=== PATIENT | male | born 1950 | race Two or more races ===

== ENCOUNTER 2019-06-08 12:22 | Inpatient (IN) | payer OTHER ==
[2019-06-08] MEDS ORDERED: ACETAMINOPHEN 1000 MG/100 ML VIAL (NON FORMULARY) IVPB ONE (13:04)
[2019-06-08] MEDS ORDERED: SODIUM CHLORIDE 1,000 ML IV STA ×2 (13:04→18:11)
--- NOTE | 2019-06-08 13:06 | PDOC ---
History of Present Illness - General History Source: Patient, Family - History of Present Illness Timing/Duration: other (this afternoon) <Jorge Wyman - Last Filed: 06/08/19 18:47> <Carleen Shaikh - Last Filed: 06/10/19 09:37> - General Chief Complaint: Pain Stated Complaint: ABD. PAIN Time Seen by Provider: 06/08/19 12:50 Past History - Past Medical History Anemia: Yes COPD: No Diabetes: Yes HTN: Yes Hypercholesterolemia: Yes - Surgical History Abdominal Surgery: Yes (ULCERS) - Psycho Social/Smoking Cessation Hx Smoking History: Never smoked <Tanna WymanYamilka - Last Filed: 06/08/19 18:47> <Carleen Shaikh - Last Filed: 06/10/19 09:37> - Past Medical History Allergies/Adverse Reactions: Allergies Allergy/AdvReac Type Severity Reaction Status Date / Time No Known Allergies Allergy Verified 06/08/19 12:28 Review of Systems - Review of Systems Constitutional: No: Chills, Fever ABD/GI: Yes: Diarrhea, Abdominal cramping. No: Nausea, Vomiting : No: Dysuria <Tanna WymanColtPinky - Last Filed: 06/08/19 18:47> *Physical Exam - Vital Signs Last Vital Signs Temp Pulse Resp BP Pulse Ox 97.3 F L 80 18 114/39 L 100 06/08/19 12:23 06/08/19 12:23 06/08/19 12:23 06/08/19 12:23 06/08/19 12:23 - Physical Exam Comments: 06/08/19 13:12 appears mildly lethargic General Appearance: Yes: Appropriately Dressed HEENT: positive: Normal Voice Neck: positive: Supple Respiratory/Chest: positive: Lungs Clear, Normal Breath Sounds. negative: Respiratory Distress Cardiovascular: positive: Regular Rate, S1, S2 Gastrointestinal/Abdominal: positive: Normal Bowel Sounds, Tender (diffusely), Soft. negative: Distended, Guarding, Rebound Musculoskeletal: negative: CVA Tenderness Integumentary: positive: Dry, Warm Neurologic: positive: Fully Oriented, Alert, Normal Mood/Affect <Tanna WymanYamilka - Last Filed: 06/08/19 18:47> - Vital Signs Last Vital Signs Temp Pulse Resp BP Pulse Ox 98.1 F 87 18 148/71 100 06/09/19 22:00 06/10/19 08:58 06/10/19 08:58 06/10/19 08:58 06/09/19 21:00 <HawaCarleen Manuel - Last Filed: 06/10/19 09:37> ED Treatment Course - LABORATORY CBC & Chemistry Diagram: 06/08/19 13:45 06/08/19 13:45 <Jorge Wyman - Last Filed: 06/08/19 18:47> - LABORATORY CBC & Chemistry Diagram: 06/09/19 08:40 06/09/19 08:40 - ADDITIONAL ORDERS Additional order review: 06/08/19 13:45 RBC 2.79 L MCV 89.1 MCHC 32.1 RDW 14.9 MPV 9.0 Neutrophils % 60.4 Lymphocytes % 22.0 Monocytes % 16.6 H Eosinophils % 0.6 Basophils % 0.4 - Medications Given in the ED: ED Medications Discontinued Medications Generic Name Dose Route Start Last Admin Trade Name Brittany PRN Reason Stop Dose Admin Acetaminophen 1,000 mg 06/08/19 13:04 06/08/19 15:05 Ofirmev Injection - IVPB 06/08/19 13:05 1,000 mg ONCE ONE Administration Sodium Chloride 1,000 mls @ 1,000 mls/hr 06/08/19 13:04 06/08/19 15:04 Normal Saline - IV 06/08/19 14:03 1,000 mls/hr ASDIR STA Administration Sodium Chloride 1,000 mls @ 1,000 mls/hr 06/08/19 18:11 06/08/19 18:46 Normal Saline - IV 06/08/19 19:10 1,000 mls/hr ASDIR STA Administration Lactated Ringer's 1,000 ml in 1,000 mls @ 83 mls/hr 06/08/19 20:45 06/08/19 21:50 Lactated Ringers Solution IV 83 mls/hr ASDIR TOYA Administration Ceftriaxone Sodium 50 mls @ 100 mls/hr 06/08/19 20:49 06/08/19 23:38 Ceftriaxone 1 Gm-D5w Bag IVPB 06/08/19 21:18 Not Given ONCE ONE Ceftriaxone Sodium 1 gm/ 50 mls @ 100 mls/hr 06/08/19 23:30 06/08/19 23:39 Dextrose IVPB 06/08/19 23:59 100 mls/hr ONCE ONE Administration Magnesium Sulfate 2 gm 06/09/19 13:41 06/09/19 16:25 Magnesium Sulfate IVPB 06/09/19 13:42 2 gm ONCE ONE Administration <Carleen Shaikh - Last Filed: 06/10/19 09:37> Medical Decision Making - Medical Decision Making 06/08/19 12:59 68 yo M, h/o HTN, DM, s/p surgery for gastric ulcer remotely per daughter, recently completed antibiotics for L foot cellulitis, currently undergoing hyperbaric oxygen treatment for wound, brought in by daughter for dizziness that patient reported today while at pharmacy. Reports feeling lightheaded and weak. Patient states for the past 20 days or more has had diffuse abdominal pain with numerous episodes of non-bloody watery stool. Was seen by his doctor and given medication for diarrhea which does not help her family. Denies any fever or chills. States symptoms started prior to antibiotic use. No recent travel see exam R/o colitis Stable but hawa lethargic w/ diffuse ttp -pain control -IVF -labs -ekg/trop given dizziness though m/l 2/2 dehydration given hx, less likely cardiac -CT a/p -dispo pending 06/08/19 15:08 Labs remarkable for hemoglobin of 8, no old to compare. Patient status post surgery for GI ulcer per daughter and is known to have anemia with multiple transfusions in the past. Does not remember patient's last hemoglobin. Guaiac with gross trace bright red blood. Type and screen and coags pending. Potassium 5.8 with normal creatinine. EKG with possible early re-pole, otherwise unremarkable. Troponin negative. CT abdomen pelvis and stool studies pending. Anticipate admission for dehydration/weakness given persistent diarrhea. Anemia may also play role 06/08/19 18:02 CT with multiple findings, mostly most appears non-acute. Seen is increased intracolonic fluid suggestive of diarrheal illness but no colonic wall edema or fluid. There is concentric subQ edema along the abdomen and pelvis. There is also dilation of main pancreatic duct within the head, MRI/MRCP suggested. Gallstones seen with no signs of acute cholecystitis. Also seen partially is possible mod pericardial effusion, echo suggested. Of note, pt has no SOB or CP at this time. Will defer further eval to inpt team/cards. Patient feels better at this time but still feels weak. IVF in progress. At this time has still not been able to give us a stool sample. Will admit at this time <Jorge Wyman - Last Filed: 06/08/19 18:47> - Medical Decision Making The patient was seen and evaluated in conjunction with midlevel provider under my direct supervision, ancillary studies were reviewed. I agree with the plan as outlined with MIKI Wyman. HPI, workup/dispo as outlined. VS reviewed, wnl. anticipate labs/CT imaging, c diff eval from stool sampling, infectious workup, GI eval for persistent diarrhea, admission 06/10/19 09:36 06/10/19 09:37 <Carleen Shaikh - Last Filed: 06/10/19 09:37> Discharge - Discharge Information Problems reviewed: Yes - Admission Yes <Jorge Wyman - Last Filed: 06/08/19 18:47> <Carleen Shaikh - Last Filed: 06/10/19 09:37> - Discharge Information Clinical Impression/Diagnosis: Weakness, Dehydration Diarrhea Qualifiers: Diarrhea type: unspecified type Qualified Code(s): R19.7 - Diarrhea, unspecified Anemia Qualifiers: Anemia type: unspecified type Qualified Code(s): D64.9 - Anemia, unspecified Abdominal pain Qualifiers: Abdominal location: unspecified location Qualified Code(s): R10.9 - Unspecified abdominal pain Condition: Fair
[2019-06-08 14:34] LABS: ALBUMIN 3.2 g/dl (3.4-5.0); ALK PHOS 80 U/L (45-117); ANION GAP 8 MMOL/L (8-16); BILIRUBIN,TOTAL 0.2 mg/dL (0.2-1); BLOOD UREA NITROGEN 20.2 mg/dL (7-18); CALCIUM 8.4 mg/dL (8.5-10.1); CHLORIDE 110 mmol/L (98-107); CO2 19 mmol/L (21-32); CREATININE 1.1 mg/dL (0.55-1.3); GLUCOSE,RANDOM 104 mg/dL (74-106); POTASSIUM 5.8 mmol/L (3.5-5.1); SGOT/AST 13 U/L (15-37); SGPT/ALT 21 U/L (13-61); SODIUM 137 mmol/L (136-145); TOT PROT 6.3 g/dl (6.4-8.2)
--- NOTE | 2019-06-08 14:38 | EKG ---
Test Reason : Blood Pressure : / mmHG Vent. Rate : 073 BPM Atrial Rate : 073 BPM P-R Int : 120 ms QRS Dur : 090 ms QT Int : 370 ms P-R-T Axes : 073 070 121 degrees QTc Int : 407 ms NORMAL SINUS RHYTHM LEFT VENTRICULAR HYPERTROPHY WITH REPOLARIZATION ABNORMALITY ABNORMAL ECG NO PREVIOUS ECGS AVAILABLE Confirmed by Ken Ambriz ([id number]) on 06/08/2019 2:38:22 PM Referred By: Confirmed By:Ken Ambriz
[2019-06-08 14:43] LABS: BASO % 0.4 % (0-2.0); EOS % 0.6 % (0-4.5); HEMATOCRIT 24.9 % (35.4-49); MCH 28.6 pg (25.7-33.7); MCHC 32.1 g/dl (32.0-35.9); MEAN CELL VOLUME 89.1 fl (80-96); MONO % 16.6 % (3.8-10.2); NEUT % 60.4 % (42.8-82.8); PLATELET COUNT 124 K/MM3 (134-434); RBC 2.79 M/mm3 (4.00-5.60); RDW 14.9 % (11.9-15.9); WHITE BLOOD COUNT 3.9 K/mm3 (4.0-10.0)
[2019-06-08] MEDS ORDERED: ACETAMINOPHEN INJECTION 100 ML IVPB ONE (14:50)
[2019-06-08 16:08] LABS: INR 1.12 (0.83-1.09); PROTHROMBIN TIME (PATIENT) 13.2 SEC (9.7-13.0)
--- NOTE | 2019-06-08 20:02 | PN ---
Teaching Attending Note Name of Resident: Jovanny Bishop ATTENDING PHYSICIAN STATEMENT I saw and evaluated the patient. I reviewed the resident's note and discussed the case with the resident. I agree with the resident's findings and plan as documented. SUBJECTIVE: 68-year-old male with uncontrolled diabetes mellitus, hypertension, peripheral vascular disease, Was undergoing antibiotic treatment for left big toe wound Since May 07Hyperbaric oxygen [facility] at [facility]. Patient denied that bone was infected. About 1 week later he developed diarrhea with up to 10 bowel movements per day. Stools were nonbloody. Denied any fevers. Patient said he stopped taking his antibiotics several days ago due to his persistent diarrhea. OBJECTIVE: Last Vital Signs Temp Pulse Resp BP Pulse Ox 98.3 F 67 15 126/57 L 100 06/08/19 19:47 06/08/19 19:47 06/08/19 19:48 06/08/19 19:47 06/08/19 19:48 GENERAL: Thin, not in acute distress, awake and alert HEENT: Normocephalic, atraumatic. PERRLA, EOMI. No conjunctival pallor. Sclera are non- icteric. Moist mucous membranes. Oropharynx is clear. NECK: Supple. Full ROM. No JVD. Carotid pulses 2+ and symmetric, without bruits. No thyromegaly. No lymphadenopathy. CARDIOVASCULAR: Regular rate and rhythm. No murmurs, rubs, or gallops. Distal pulses are 2+ and symmetric. PULMONARY: No evidence of respiratory distress. Lungs clear to auscultation bilaterally. No wheezing, rales or rhonchi. ABDOMINAL: Soft. Non-tender. Non-distended. No rebound or guarding. No organomegaly. Normoactive bowel sounds. MUSCULOSKELETAL Normal range of motion at all joints. No bony deformities or tenderness. No CVA tenderness. EXTREMITIES: No cyanosis. No clubbing. No edema. No calf tenderness. SKIN: Warm and dry. Normal capillary refill. No rashes. No jaundice. PSYCHIATRIC: Cooperative. Good eye contact. Appropriate mood and affect. As per ER rectal exam reported to have blood specks in stool Abnormal Lab Results 06/08/19 06/08/19 06/08/19 13:45 13:45 15:30 WBC 3.9 L RBC 2.79 L Hgb 8.0 L Hct 24.9 L Plt Count 124 L Monocytes % 16.6 H PT with INR 13.20 H INR 1.12 H Potassium 5.8 H Chloride 110 H Carbon Dioxide 19 L BUN 20.2 H Calcium 8.4 L AST 13 L Total Protein 6.3 L Albumin 3.[address] of abdomen pelvis showed increased intracolonic fluid suggestive of diarrhea. Increased mesenteric density seen suggestive of edema, surgical clips are adjacent to gastroesophageal junction. Cholelithiasis. Mild bilateral adrenal gland thickening. Main pancreatic duct within the head is dilated with a 0.9 cm diameter. ASSESSMENT AND PLAN: 68-year-old man with severe diarrhea with up to 7 BMs per day while on antibiotics concerning for possible C. difficile colitis. Will rule out C. difficile colitis and evaluate for other causes of infectious or inflammatory colitis.Due to severity of diarrhea would also treat empirically with antimicrobials for possible Bacterial colitis. Admit to MedSurg IV fluid hydration with LR Send stool for C. difficile toxin PCR Stool WBC, culture, ova and parasites, osmolarity Send stool for FOBT Empiric antibiotic therapy with Rocephin and metronidazole Imodium as needed for severe diarrhea #Pancytopenia Continue to monitor cell counts HIV testing #Left great toe InfectionUnclear as were used and the plan of treatment was. On exam patient's toe appears healthy and no evidence of infection. We will obtain history for treatment in a.m. DVT prophylaxis with heparin subcutaneously
--- NOTE | 2019-06-08 20:31 | HP ---
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 Pt endorses that he has been experiencing profuse diarrhea for 20 days duration. Pt has been experiencing as many as 8 episodes per day. No blood is seen in stool. Pt does state he has been on antibiotics (cannot recall name) for a left large toe bone infection (most likely osteomyelitis). Pt follows up at our wound care where he receives Hyperbaric oxygen treatment. Pt states he was prescribed a 60 day course of oral antibiotics and he has been taking them so far for ~40-50 days. Endorses abdominal pain which is described as colicky in nature. Denies fever, chills, nausea/vomiting, chest pain, shortness of breath, numbness/tingling, or dysuria. PMH as above SocialHx- Denies tobacco/alcohol/illicit drug use SurgHx- 2 Stomach ulcer surgeries 1995 and 2016 respectively HH- Father Stroke, Mother DM NKDA ER course was notable for: (1) H/H 8.9 (2) (3) HOME MEDICATIONS: Home Medications Medication Instructions Recorded Unobtainable 06/08/19 REVIEW OF SYSTEMS CONSTITUTIONAL: Absent: fever, chills, diaphoresis, generalized weakness, malaise, loss of appetite, weight change HEENT: Absent: rhinorrhea, nasal congestion, throat pain, throat swelling, difficulty swallowing, mouth swelling, ear pain, eye pain, visual changes CARDIOVASCULAR: Absent: chest pain, syncope, palpitations, irregular heart rate, lightheadedness , peripheral edema RESPIRATORY: Absent: cough, shortness of breath, dyspnea with exertion, orthopnea, wheezing, stridor, hemoptysis GASTROINTESTINAL: PRESENT abdominal pain, diarrhea GENITOURINARY: Absent: dysuria, frequency, urgency, hesitancy, hematuria, flank pain, genital pain MUSCULOSKELETAL: Absent: myalgia, arthralgia, joint swelling, back pain, neck pain SKIN: Absent: rash, itching, pallor HEMATOLOGIC/IMMUNOLOGIC: Absent: easy bleeding, easy bruising, lymphadenopathy, frequent infections ENDOCRINE: Absent: unexplained weight gain, unexplained weight loss, heat intolerance, cold intolerance NEUROLOGIC: Absent: headache, focal weakness or paresthesias, dizziness, unsteady gait, seizure, mental status changes, bladder or bowel incontinence PSYCHIATRIC: Absent: anxiety, depression, suicidal or homicidal ideation, hallucinations. PHYSICAL EXAMINATION Vital Signs - 24 hr 06/08/19 06/08/19 06/08/19 12:23 13:40 19:47 Temperature 97.3 F L 98.3 F Pulse Rate 80 Pulse Rate [ 77 67 Right] Respiratory 18 16 15 Rate Blood Pressure 114/39 L Blood Pressure 111/55 L 126/57 L [Right Arm] O2 Sat by Pulse 100 100 100 Oximetry (%) 06/08/19 19:48 Temperature Pulse Rate Pulse Rate [ Right] Respiratory 15 Rate Blood Pressure Blood Pressure [Right Arm] O2 Sat by Pulse 100 Oximetry (%) GENERAL: NAD AAOx3 HEAD: Normal with no signs of trauma. EYES: ++Scleral icterus EARS, NOSE, THROAT: Dry mucous membranes NECK: Supple No JVD LUNGS: Clear to auscultation bilaterally HEART: RRR S1S2 ABDOMEN: Diffuse abdominal tenderness. Vertical Surgical Scar mid abdomen RECTAL-No masses, hemmorhoids, or blood around anus. Loose stool in rectal vault. MUSCULOSKELETAL: FROM LOWER EXTREMITIES: Healing wound left large toe. Nonoozing not malodorous NEUROLOGICAL: Cranial nerves II-XII intact. PSYCHIATRIC: Cooperative. Good eye contact. Appropriate mood and affect. Laboratory Results - last 24 hr 06/08/19 06/08/19 06/08/19 13:45 13:45 13:45 WBC 3.9 L RBC 2.79 L Hgb 8.0 L Hct 24.9 L MCV 89.1 MCH 28.6 MCHC 32.1 RDW 14.9 Plt Count 124 L MPV 9.0 Absolute Neuts (auto) 2.3 Neutrophils % 60.4 Lymphocytes % 22.0 Monocytes % 16.6 H Eosinophils % 0.6 Basophils % 0.4 Nucleated RBC % 0 PT with INR INR Sodium 137 Potassium 5.8 H Chloride 110 H Carbon Dioxide 19 L Anion Gap 8 BUN 20.2 H Creatinine 1.1 Est GFR (CKD-EPI)AfAm 80.65 Est GFR (CKD-EPI)NonAf 69.58 Random Glucose 104 Calcium 8.4 L Total Bilirubin 0.2 AST 13 L ALT 21 Alkaline Phosphatase 80 Creatine Kinase 60 Troponin I < 0.02 Total Protein 6.3 L Albumin 3.2 L Lipase 332 Anti-A Titer Blood Type Antibody Screen 06/08/19 06/08/19 15:30 15:30 WBC RBC Hgb Hct MCV MCH MCHC RDW Plt Count MPV Absolute Neuts (auto) Neutrophils % Lymphocytes % Monocytes % Eosinophils % Basophils % Nucleated RBC % PT with INR 13.20 H INR 1.12 H Sodium Potassium Chloride Carbon Dioxide Anion Gap BUN Creatinine Est GFR (CKD-EPI)AfAm Est GFR (CKD-EPI)NonAf Random Glucose Calcium Total Bilirubin AST ALT Alkaline Phosphatase Creatine Kinase Troponin I Total Protein Albumin Lipase Anti-A Titer Cancelled Blood Type Cancelled Antibody Screen Cancelled ASSESSMENT/PLAN: Pt is a 68 y/o Arabic speaking M with a significant past medical history of NIDDM, HTN, and PVD who presented to [facility] due to diarrhea. #Diarrhea 2/2 Antibiotic Use -Pt endorses a prolonged course of antibiotic use -Will order C-Diff -Stool for Ova and Parasites -Stool C&S -I.D fluids for hydration -Stool occult -Ceftriaxone and Flagyl as PA observed blood during rectal exam as well as h/o 20 days diarrhea -Consider GI consult in am #Anemia 2/2 possible GI Source -H/H 8.0/24.9 -Repeat CBC in am -Transfuse for hemoglobin < 7.0. -Ferritin, TIBC, IRON, B12 #FEN -NS@83 cc/hr -Monitor Electrolytes -NPO #DVT ppx -SCDs in light of anemia #Dispo -Med Surg Day team to reconcile medications Visit type - Emergency Visit Emergency Visit: Yes ED Registration Date: 06/08/19 Care time: The patient presented to the Emergency Department on the above date and was hospitalized for further evaluation of their emergent condition. - New Patient This patient is new to me today: Yes Date on this admission: 06/08/19 - Critical Care Critical Care patient: No ATTENDING PHYSICIAN STATEMENT I saw and evaluated the patient. I reviewed the resident's note and discussed the case with the resident. I agree with the resident's findings and plan as documented. SUBJECTIVE: OBJECTIVE: ASSESSMENT AND PLAN:
[2019-06-08] MEDS ORDERED: LACTATED RINGERS SOLUTION 1,000 ML/1,000 ML INFUS.BAG IV SCH (20:45)
[2019-06-08] MEDS ORDERED: CEFTRIAXONE 1 G/50 ML PREMIX 50 ML IVPB ONE (20:49)
[2019-06-08] MEDS ORDERED: CEFTRIAXONE 1 GM in DEXTROSE 5%-WATER - 50 ML IVPB ONE (23:30)
[2019-06-08] MEDS: SODIUM CHLORIDE 1,000 ML IV SCH (23:33)
[2019-06-08] MEDS ORDERED: cefTRIAXone SODIUM 1 GM VIAL ONE (23:36)
[2019-06-08] MEDS ORDERED: DEXTROSE 5%-WATER - 50 ML IVPB ONE (23:37)
[2019-06-09 01:14] LABS: BLOOD UREA NITROGEN 18.7 mg/dL (7-18); CALCIUM 7.8 mg/dL (8.5-10.1); CREATININE 1.1 mg/dL (0.55-1.3); POTASSIUM 5.4 mmol/L (3.5-5.1)
[2019-06-09] MEDS: INSULIN SLIDING SCALE (NOVOLOG) 1 VIAL SQ SCH ×4 (06:48→22:18)
[2019-06-09 09:11] LABS: BASO % 0.1 % (0-2.0); EOS % 0.8 % (0-4.5); HEMATOCRIT 22.4 % (35.4-49); HEMOGLOBIN 7.3 GM/dL (11.7-16.9); LYMPH % 27.1 % (8-40); MCH 28.6 pg (25.7-33.7); MCHC 32.4 g/dl (32.0-35.9); MEAN CELL VOLUME 88.1 fl (80-96); MEAN PLT VOLUME 8.6 fl (7.5-11.1); MONO % 18.9 % (3.8-10.2); NEUT % 53.1 % (42.8-82.8); PLATELET COUNT 108 K/MM3 (134-434); RBC 2.54 M/mm3 (4.00-5.60); RDW 14.7 % (11.9-15.9); WHITE BLOOD COUNT 2.9 K/mm3 (4.0-10.0)
[2019-06-09 09:16] LABS: INR 1.07 (0.83-1.09); PROTHROMBIN TIME (PATIENT) 12.6 SEC (9.7-13.0)
[2019-06-09 09:19] LABS: ACTIVATED PTT 30.3 SECONDS (25.2-36.5)
[2019-06-09 09:36] LABS: ALBUMIN 2.9 g/dl (3.4-5.0); BILIRUBIN,TOTAL 0.2 mg/dL (0.2-1); BLOOD UREA NITROGEN 18.4 mg/dL (7-18); CALCIUM 8.1 mg/dL (8.5-10.1); CREATININE 0.8 mg/dL (0.55-1.3); MAGNESIUM 1.4 mg/dL (1.8-2.4); PHOSPHOROUS 2.6 mg/dL (2.5-4.9); POTASSIUM 4.7 mmol/L (3.5-5.1); TOT PROT 5.5 g/dl (6.4-8.2)
--- NOTE | 2019-06-09 10:36 | EKG ---
Test Reason : Blood Pressure : / mmHG Vent. Rate : 064 BPM Atrial Rate : 064 BPM P-R Int : 124 ms QRS Dur : 098 ms QT Int : 406 ms P-R-T Axes : 069 066 094 degrees QTc Int : 418 ms NORMAL SINUS RHYTHM T WAVE ABNORMALITY, CONSIDER LATERAL ISCHEMIA ABNORMAL ECG WHEN COMPARED WITH ECG OF 08-JUN-2019 13:12, NO SIGNIFICANT CHANGE WAS FOUND Confirmed by GRETA TOVAR, ALINA ([id number]) on 06/09/2019 10:36:11 AM Referred By: Confirmed By:ALINA HERNANDES MD
--- NOTE | 2019-06-09 13:25 | PN ---
Teaching Attending Note Name of Resident: Kendall Ellis ATTENDING PHYSICIAN STATEMENT I saw and evaluated the patient. I reviewed the resident's note and discussed the case with the resident. I agree with the resident's findings and plan as documented. SUBJECTIVE: No more diarrhea -last episode yesterday. Reports 1 month Hx of watery diarrhea. No abdominal pain/nausea/vomiting/fever/chills. OBJECTIVE: Afebrile, Hemodynamically Stable. Last Vital Signs Temp Pulse Resp BP Pulse Ox 98.1 F 66 18 157/65 100 06/09/19 08:57 06/09/19 08:57 06/09/19 08:57 06/09/19 08:57 06/09/19 09:00 HEENT - Atraumatic, Normocephalic Heart - S1, S2, RRR Lungs - clear to auscultation Abdomen - Soft, non-tender. Bowel Sounds normal. Extremities - no edema, no calf tenderness. L great toe ulcer, no purulence or surrounding erythema Laboratory Results - last 24 hr 06/08/19 06/08/19 06/08/19 13:45 13:45 13:45 WBC 3.9 L RBC 2.79 L Hgb 8.0 L Hct 24.9 L MCV 89.1 MCH 28.6 MCHC 32.1 RDW 14.9 Plt Count 124 L MPV 9.0 Absolute Neuts (auto) 2.3 Neutrophils % 60.4 Lymphocytes % 22.0 Monocytes % 16.6 H Eosinophils % 0.6 Basophils % 0.4 Nucleated RBC % 0 PT with INR INR PTT (Actin FS) Sodium 137 Potassium 5.8 H Chloride 110 H Carbon Dioxide 19 L Anion Gap 8 BUN 20.2 H Creatinine 1.1 Est GFR (CKD-EPI)AfAm 80.65 Est GFR (CKD-EPI)NonAf 69.58 POC Glucometer Random Glucose 104 Calcium 8.4 L Phosphorus Magnesium Iron TIBC Iron Saturation Unsaturated IBC Ferritin Total Bilirubin 0.2 AST 13 L ALT 21 Alkaline Phosphatase 80 Creatine Kinase 60 Troponin I < 0.02 Total Protein 6.3 L Albumin 3.2 L Lipase 332 Vitamin B12 Anti-A Titer Blood Type Antibody Screen 06/08/19 06/08/19 06/08/19 15:30 15:30 22:18 WBC RBC Hgb Hct MCV MCH MCHC RDW Plt Count MPV Absolute Neuts (auto) Neutrophils % Lymphocytes % Monocytes % Eosinophils % Basophils % Nucleated RBC % PT with INR 13.20 H INR 1.12 H PTT (Actin FS) Sodium Potassium Chloride Carbon Dioxide Anion Gap BUN Creatinine Est GFR (CKD-EPI)AfAm Est GFR (CKD-EPI)NonAf POC Glucometer 110 Random Glucose Calcium Phosphorus Magnesium Iron TIBC Iron Saturation Unsaturated IBC Ferritin Total Bilirubin AST ALT Alkaline Phosphatase Creatine Kinase Troponin I Total Protein Albumin Lipase Vitamin B12 Anti-A Titer Cancelled Blood Type Cancelled Antibody Screen Cancelled 06/09/19 06/09/19 06/09/19 00:15 06:47 08:40 WBC 2.9 L RBC 2.54 L Hgb 7.3 L Hct 22.4 L MCV 88.1 MCH 28.6 MCHC 32.4 RDW 14.7 Plt Count 108 L MPV 8.6 Absolute Neuts (auto) 1.5 Neutrophils % 53.1 Lymphocytes % 27.1 D Monocytes % 18.9 H Eosinophils % 0.8 Basophils % 0.1 Nucleated RBC % 0 PT with INR INR PTT (Actin FS) Sodium 140 Potassium 5.4 H Chloride 112 H Carbon Dioxide 21 Anion Gap 7 L BUN 18.7 H Creatinine 1.1 Est GFR (CKD-EPI)AfAm 80.65 Est GFR (CKD-EPI)NonAf 69.58 POC Glucometer 90 Random Glucose 118 H Calcium 7.8 L Phosphorus Magnesium Iron TIBC Iron Saturation Unsaturated IBC Ferritin Total Bilirubin AST ALT Alkaline Phosphatase Creatine Kinase Troponin I Total Protein Albumin Lipase Vitamin B12 Anti-A Titer Blood Type Antibody Screen 06/09/19 06/09/19 06/09/19 08:40 08:40 08:40 WBC RBC Hgb Hct MCV MCH MCHC RDW Plt Count MPV Absolute Neuts (auto) Neutrophils % Lymphocytes % Monocytes % Eosinophils % Basophils % Nucleated RBC % PT with INR 12.60 INR 1.07 PTT (Actin FS) 30.3 Sodium 138 Potassium 4.7 Chloride 111 H Carbon Dioxide 23 Anion Gap 4 L BUN 18.4 H Creatinine 0.8 Est GFR (CKD-EPI)AfAm 107.89 Est GFR (CKD-EPI)NonAf 93.09 POC Glucometer Random Glucose 88 Calcium 8.1 L Phosphorus 2.6 Magnesium 1.4 L Iron 21 L 21 L TIBC 239 L Iron Saturation 8 L Unsaturated IBC 218 Ferritin 58.4 Total Bilirubin 0.2 AST 10 L ALT 18 Alkaline Phosphatase 76 Creatine Kinase Troponin I Total Protein 5.5 L Albumin 2.9 L Lipase Vitamin B12 879 Anti-A Titer Blood Type Antibody Screen 06/09/19 11:25 WBC RBC Hgb Hct MCV MCH MCHC RDW Plt Count MPV Absolute Neuts (auto) Neutrophils % Lymphocytes % Monocytes % Eosinophils % Basophils % Nucleated RBC % PT with INR INR PTT (Actin FS) Sodium Potassium Chloride Carbon Dioxide Anion Gap BUN Creatinine Est GFR (CKD-EPI)AfAm Est GFR (CKD-EPI)NonAf POC Glucometer 92 Random Glucose Calcium Phosphorus Magnesium Iron TIBC Iron Saturation Unsaturated IBC Ferritin Total Bilirubin AST ALT Alkaline Phosphatase Creatine Kinase Troponin I Total Protein Albumin Lipase Vitamin B12 Anti-A Titer Blood Type Antibody Screen Current Medications Generic Name Dose Route Start Last Admin Trade Name Brittany PRN Reason Stop Dose Admin Metronidazole 500 mg in 100 mls @ 100 mls/hr 06/08/19 21:00 06/09/19 10:25 Flagyl 500mg Premixed Ivpb - IVPB 100 mls/hr Q8H-IV TOYA Administration Sodium Chloride 1,000 mls @ 83 mls/hr 06/08/19 22:30 06/08/19 23:33 Normal Saline - IV 83 mls/hr ASDIR TOYA Administration Insulin Aspart 1 vial 06/09/19 07:00 06/09/19 11:35 Novolog Vial Sliding Scale - SQ Not Given ACHS TOYA Protocol Home Medications Medication Instructions Recorded Unobtainable 06/08/19 ASSESSMENT AND PLAN: 68 year old male with history of DM 2, HTN, PVD, PUD s/p repair, on antibiotics for L great toe infection ?osteomyelitis, admitted with prolonged periods of watery diarrhea - denies hematochezia/abdominal pain/nausea/vomiting/fever/ chills. 1. Diarrhea, likely secondary to Antibiotic Use. Cdiff requested along with Stool Cx. Flagyl empirically. Afebrile, Hemodynamically Stable. Will initiate clear liquid diet and advance as tolerated. 2. Pancytopenia - etiology unclear. Will reach out to patient's PCP Dr. Da Silva to enquire re: any hematological diagnoses. No signs of acute infection. Possible dx of chronic osteomyleitis - will confirm with PCP. 3. Anemia, likely multifactorial, including Iron deficiency. Reported blood per rectum on PE in ED. FOBT requested. Iron Sat 8% - No evidence of acute blood loss. Will monitor. hold off iron replacement untill FOBT sample obtained. 4. Hyperkalemia - repleted. 5. Hypomagnesemia - repleted. 6. Moderate pericardial Effusion on CT - no clinical signs of tamponade. Echo requested. 7.Dilated Pancreatic Duct - recommended to have MRCP (ordered) 8. Bilateral Adrenal Gland thickening on CT - MRI requested. 9. L Renal cortical lesion - incidental CT finding - for out-patient Urology follow up. 10. L Great toe infected Ulcer ? Osteomyelitis - will need medical records from PCP. Abx currently held de to diarrhea. DVT Px - SCDs.
[2019-06-09] MEDS ORDERED: MAGNESIUM SULF 50% (8.12 MEQ/2 ML-1 GM VIAL) IVPB ONE (13:41)
--- NOTE | 2019-06-09 14:17 | ECHO ---
Name: KLEBER DEMPSEY Exam:Adult Echocardiogram Study Date: 06/09/2019 12:08 PM Age: 68 yrs Reason For Study: Pericardial Effusion Height: 62 in Weight: 109 lb BSA: 1.5 m2 MMode/2D Measurements & Calculations IVSd: 1.0 cm Ao root diam: 2.9 cm LVIDd: 4.3 cm LA dimension: 3.7 cm LVIDs: 2.8 cm LVPWd: 1.1 cm LVPWs: 1.4 cm EDV(Teich): 81.3 ml ESV(Teich): 28.4 ml LVOT diam: 1.6 cm TAPSE: 2.2 cm RV S Zachary: 19.4 cm/sec Doppler Measurements & Calculations MV E max zachary: 74.0 cm/sec Ao V2 max: 120.3 cm/sec MV A max zachary: 114.0 cm/sec Ao max P.2 mmHg MV E/A: 0.65 MV dec time: 0.21 sec TR max zachary: 238.1 cm/sec PA V2 max: 88.6 cm/sec TR max P.1 mmHg PA max P.1 mmHg PI end-d zachary: 100.8 cm/sec Med Peak E' Zachary: 4.9 cm/sec Med E/e': 15.2 Lat Peak E' Zachary: 5.9 cm/sec Lat E/e': 12.5 Procedure A two-dimensional transthoracic echocardiogram with color flow and Doppler was performed. Left Ventricle The left ventricular size, thickness and function are normal. The left ventricular ejection fraction is normal. E/A reversal consistent with but not diagnostic of poor LV compliance. The left ventricular w all motion is normal. Right Ventricle The right ventricle is normal in size and function. Atria Normal left and right atrial size and function. Mitral Valve There is mild mitral valve thickening. There is no mitral valve stenosis. There is mild mitral regurg itation. Tricuspid Valve There is mild tricuspid valve thickening. There is no tricuspid stenosis. There is moderate tricuspid regurgitation. Right ventricular systolic pressure is normal. Aortic Valve The aortic valve is trileaflet. There is mild aortic valve thickening. There is mild aortic sclerosis .;. No hemodynamically significant valvular aortic stenosis. No aortic regurgitation is present. Pulmonic Valve There is no pulmonic valvular stenosis. Mild to moderate pulmonic valvular regurgitation. Great Vessels The aortic root is normal size. Pericardium/Pleura Moderate pericardial effusion (1-2 cm). Interpretation Summary The left ventricular size, thickness and function are normal The left ventricular ejection fraction is normal. The left ventricular wall motion is normal. There is mild mitral regurgitation. There is moderate tricuspid regurgitation. Right ventricular systolic pressure is normal. There is mild aortic sclerosis.; There is mild aortic valve thickening. The aortic valve is trileaflet. E/A reversal consistent with but not diagnostic of poor LV compliance Moderate pericardial effusion (1-2 cm) MD Humberto Moraes 06/09/2019 02:16 PM
--- NOTE | 2019-06-09 14:58 | PN ---
Physical Exam: SUBJECTIVE: Patient seen and examined in the morning. No acute events overnight. No complaints of chest pain, shortness of breath, abdominal pain, no nausea, vomiting, diarrhea. Patient has not had bowel movement since coming up to the floors. 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 HEAD: Normal with no signs of trauma. EYES: PERRL, extraocular movements intact, sclera anicteric, conjunctiva clear. NECK: Trachea midline, full range of motion, supple. LUNGS: Breath sounds equal, clear to auscultation bilaterally, no wheezes, no crackles. HEART: Regular rate and rhythm, S1, S2 without murmur, rub or gallop. ABDOMEN: Soft, nontender, nondistended, normoactive bowel sounds, no guarding. Rectal exam negative. Normal sphincter tone. No stool in vault. EXTREMITIES: 2+ pulses, warm, well-perfused, no edema. Big toe on the left foot has ulceration that is healing but no pus or bleed oozing out. NEUROLOGICAL: Cranial nerves II through XII grossly intact. Normal speech. PSYCH: Normal mood, normal affect. SKIN: Warm, dry, normal turgor, no rashes or lesions noted Laboratory Results - last 24 hr 06/08/19 06/08/19 06/08/19 13:45 13:45 15:30 WBC 3.9 L RBC 2.79 L Hgb 8.0 L Hct 24.9 L MCV 89.1 MCH 28.6 MCHC 32.1 RDW 14.9 Plt Count 124 L MPV 9.0 Absolute Neuts (auto) 2.3 Neutrophils % 60.4 Lymphocytes % 22.0 Monocytes % 16.6 H Eosinophils % 0.6 Basophils % 0.4 Nucleated RBC % 0 PT with INR 13.20 H INR 1.12 H PTT (Actin FS) Sodium 137 Potassium 5.8 H Chloride 110 H Carbon Dioxide 19 L Anion Gap 8 BUN 20.2 H Creatinine 1.1 Est GFR (CKD-EPI)AfAm 80.65 Est GFR (CKD-EPI)NonAf 69.58 POC Glucometer Random Glucose 104 Calcium 8.4 L Phosphorus Magnesium Iron TIBC Iron Saturation Unsaturated IBC Ferritin Total Bilirubin 0.2 AST 13 L ALT 21 Alkaline Phosphatase 80 Creatine Kinase 60 Troponin I < 0.02 Total Protein 6.3 L Albumin 3.2 L Vitamin B12 Anti-A Titer Blood Type Antibody Screen 06/08/19 06/08/19 06/09/19 15:30 22:18 00:15 WBC RBC Hgb Hct MCV MCH MCHC RDW Plt Count MPV Absolute Neuts (auto) Neutrophils % Lymphocytes % Monocytes % Eosinophils % Basophils % Nucleated RBC % PT with INR INR PTT (Actin FS) Sodium 140 Potassium 5.4 H Chloride 112 H Carbon Dioxide 21 Anion Gap 7 L BUN 18.7 H Creatinine 1.1 Est GFR (CKD-EPI)AfAm 80.65 Est GFR (CKD-EPI)NonAf 69.58 POC Glucometer 110 Random Glucose 118 H Calcium 7.8 L Phosphorus Magnesium Iron TIBC Iron Saturation Unsaturated IBC Ferritin Total Bilirubin AST ALT Alkaline Phosphatase Creatine Kinase Troponin I Total Protein Albumin Vitamin B12 Anti-A Titer Cancelled Blood Type Cancelled Antibody Screen Cancelled 06/09/19 06/09/19 06/09/19 06:47 08:40 08:40 WBC 2.9 L RBC 2.54 L Hgb 7.3 L Hct 22.4 L MCV 88.1 MCH 28.6 MCHC 32.4 RDW 14.7 Plt Count 108 L MPV 8.6 Absolute Neuts (auto) 1.5 Neutrophils % 53.1 Lymphocytes % 27.1 D Monocytes % 18.9 H Eosinophils % 0.8 Basophils % 0.1 Nucleated RBC % 0 PT with INR 12.60 INR 1.07 PTT (Actin FS) 30.3 Sodium Potassium Chloride Carbon Dioxide Anion Gap BUN Creatinine Est GFR (CKD-EPI)AfAm Est GFR (CKD-EPI)NonAf POC Glucometer 90 Random Glucose Calcium Phosphorus Magnesium Iron TIBC Iron Saturation Unsaturated IBC Ferritin Total Bilirubin AST ALT Alkaline Phosphatase Creatine Kinase Troponin I Total Protein Albumin Vitamin B12 Anti-A Titer Blood Type Antibody Screen 06/09/19 06/09/19 06/09/19 08:40 08:40 11:25 WBC RBC Hgb Hct MCV MCH MCHC RDW Plt Count MPV Absolute Neuts (auto) Neutrophils % Lymphocytes % Monocytes % Eosinophils % Basophils % Nucleated RBC % PT with INR INR PTT (Actin FS) Sodium 138 Potassium 4.7 Chloride 111 H Carbon Dioxide 23 Anion Gap 4 L BUN 18.4 H Creatinine 0.8 Est GFR (CKD-EPI)AfAm 107.89 Est GFR (CKD-EPI)NonAf 93.09 POC Glucometer 92 Random Glucose 88 Calcium 8.1 L Phosphorus 2.6 Magnesium 1.4 L Iron 21 L 21 L TIBC 239 L Iron Saturation 8 L Unsaturated IBC 218 Ferritin 58.4 Total Bilirubin 0.2 AST 10 L ALT 18 Alkaline Phosphatase 76 Creatine Kinase Troponin I Total Protein 5.5 L Albumin 2.9 L Vitamin B12 879 Anti-A Titer Blood Type Antibody Screen Active Medications Generic Name Dose Route Start Last Admin Trade Name Freq PRN Reason Stop Dose Admin Metronidazole 500 mg in 100 mls @ 100 mls/hr 06/08/19 21:00 06/09/19 10:25 Flagyl 500mg Premixed Ivpb - IVPB 100 mls/hr Q8H-IV TOYA Administration Sodium Chloride 1,000 mls @ 83 mls/hr 06/08/19 22:30 06/08/19 23:33 Normal Saline - IV 83 mls/hr ASDIR TOYA Administration Insulin Aspart 1 vial 06/09/19 07:00 06/09/19 11:35 Novolog Vial Sliding Scale - SQ Not Given ACHS TOYA Protocol ASSESSMENT/PLAN: 68 M with PMH of DM, HTN, Peptic ulcer disease s/p gastrectomy, and PVD who presents with diarrhea without abdominal pain. 1) Diarrhea - Patient has had 3 weeks of nonbloody diarrhea with about 6-8 BM a day since starting an antibiotic on May 12. Stop taking antibiotic last Friday. -No bowel movements today. -F/U C. Diff culture -F/U Stool Ova and Parasites -F/U HIV -F/U FOBT -Abdominal MRCP ordered 2)CTA/P shows pericardial effusion -F/U Echo 3)CTA/P shows b/l adrenal thickening -F/U Abdominal MRI 4)Anemia -Pancytopenia -Obtaining medical records from PCP -Likely anemia of chronic disease. 5) L cortical renal cyst -Follow up with urology as outpatient 6)Left toe wound -Ulcer is stable, dressing in place 7)Hypomagensia -Repleted 8)Hyperkalemia -Is Stable. F: NS @ 83 ml/hr E: Monitor BMP N: Advanced to soft diet DVT: SCD Visit type - Emergency Visit Emergency Visit: Yes ED Registration Date: 06/08/19 Care time: The patient presented to the Emergency Department on the above date and was hospitalized for further evaluation of their emergent condition. - New Patient This patient is new to me today: Yes Date on this admission: 06/09/19 - Critical Care Critical Care patient: No ATTENDING PHYSICIAN STATEMENT I saw and evaluated the patient. I reviewed the resident's note and discussed the case with the resident. I agree with the resident's findings and plan as documented. SUBJECTIVE: OBJECTIVE: ASSESSMENT AND PLAN:
[2019-06-09] MEDS: ATORVASTATIN CA 80 MG TABLET (FP) PO SCH (22:09)
[2019-06-09] MEDS ORDERED: INSULIN (NOVOLOG) ASPART 100 UNITS/ML 10ML VIAL ONE (22:15)
[2019-06-09] MEDS: SODIUM CHLORIDE 1,000 ML IV SCH (23:11)
[2019-06-10] MEDS: INSULIN SLIDING SCALE (NOVOLOG) 1 VIAL SQ SCH ×4 (08:02→21:52)
[2019-06-10 09:49] LABS: BASO % 0.1 % (0-2.0); EOS % 1.3 % (0-4.5); HEMATOCRIT 25.2 % (35.4-49); HEMOGLOBIN 8.3 GM/dL (11.7-16.9); LYMPH % 27.3 % (8-40); MCH 28.8 pg (25.7-33.7); MEAN CELL VOLUME 87.1 fl (80-96); MEAN PLT VOLUME 8.3 fl (7.5-11.1); MONO % 17.8 % (3.8-10.2); NEUT % 53.5 % (42.8-82.8); PLATELET COUNT 157 K/MM3 (134-434); RBC 2.89 M/mm3 (4.00-5.60); RDW 14.6 % (11.9-15.9); WHITE BLOOD COUNT 3.3 K/mm3 (4.0-10.0)
[2019-06-10] MEDS ORDERED: PANTOPRAZOLE 40 MG TABLET (FP) PO SCH (10:00)
[2019-06-10 10:18] LABS: BLOOD UREA NITROGEN 10.4 mg/dL (7-18); CALCIUM 8.5 mg/dL (8.5-10.1); CREATININE 0.7 mg/dL (0.55-1.3); POTASSIUM 5.1 mmol/L (3.5-5.1)
[2019-06-10] MEDS: amLODIPine BESYLATE 10 MG TABLET (FP) PO SCH (10:55)
[2019-06-10] MEDS: FUROSEMIDE 40 MG TABLET (FP) PO SCH (10:55)
--- NOTE | 2019-06-10 11:01 | PN ---
Teaching Attending Note Name of Resident: Kendall Ellis ATTENDING PHYSICIAN STATEMENT I saw and evaluated the patient. I reviewed the resident's note and discussed the case with the resident. I agree with the resident's findings and plan as documented. SUBJECTIVE: No more diarrhea - last episode 2/7 ago. Reports 1 month Hx of watery diarrhea. No abdominal pain/nausea/vomiting/fever/chills. OBJECTIVE: Afebrile, Hemodynamically Stable. Last Vital Signs Temp Pulse Resp BP Pulse Ox 98.1 F 87 18 148/71 100 06/09/19 22:00 06/10/19 08:58 06/10/19 08:58 06/10/19 08:58 06/09/19 21:00 Heart - S1, S2, RRR Lungs - clear to auscultation Abdomen - Soft, non-tender. Bowel Sounds normal. Extremities - no edema, no calf tenderness. L great toe ulcer, no purulence or surrounding erythema Laboratory Results - last 24 hr 06/09/19 06/09/19 06/09/19 11:25 14:30 17:39 WBC RBC Hgb Hct MCV MCH MCHC RDW Plt Count MPV Absolute Neuts (auto) Neutrophils % Lymphocytes % Monocytes % Eosinophils % Basophils % Nucleated RBC % Sodium Potassium Chloride Carbon Dioxide Anion Gap BUN Creatinine Est GFR (CKD-EPI)AfAm Est GFR (CKD-EPI)NonAf POC Glucometer 92 118 Random Glucose Calcium HIV 1&2 Ag/Ab, 4th Gen Non reactive 06/09/19 06/10/19 06/10/19 22:11 06:56 09:22 WBC 3.3 L RBC 2.89 L Hgb 8.3 L Hct 25.2 L MCV 87.1 MCH 28.8 MCHC 33.0 RDW 14.6 Plt Count 157 D MPV 8.3 Absolute Neuts (auto) 1.8 Neutrophils % 53.5 Lymphocytes % 27.3 Monocytes % 17.8 H Eosinophils % 1.3 Basophils % 0.1 Nucleated RBC % 0 Sodium Potassium Chloride Carbon Dioxide Anion Gap BUN Creatinine Est GFR (CKD-EPI)AfAm Est GFR (CKD-EPI)NonAf POC Glucometer 167 87 Random Glucose Calcium HIV 1&2 Ag/Ab, 4th Gen 06/10/19 09:22 WBC RBC Hgb Hct MCV MCH MCHC RDW Plt Count MPV Absolute Neuts (auto) Neutrophils % Lymphocytes % Monocytes % Eosinophils % Basophils % Nucleated RBC % Sodium 138 Potassium 5.1 Chloride 108 H Carbon Dioxide 25 Anion Gap 4 L BUN 10.4 Creatinine 0.7 Est GFR (CKD-EPI)AfAm 113.98 Est GFR (CKD-EPI)NonAf 98.34 POC Glucometer Random Glucose 165 H Calcium 8.5 HIV 1&2 Ag/Ab, 4th Gen Current Medications Generic Name Dose Route Start Last Admin Trade Name Freq PRN Reason Stop Dose Admin Amlodipine Besylate 10 mg 06/10/19 10:00 06/10/19 10:55 Norvasc - PO 10 mg DAILY TOYA Administration Atorvastatin Calcium 40 mg 06/09/19 22:00 06/09/19 22:09 Lipitor - PO 40 mg HS TOYA Administration Furosemide 40 mg 06/10/19 10:00 06/10/19 10:55 Lasix - PO 40 mg DAILY TOYA Administration Metronidazole 500 mg in 100 mls @ 100 mls/hr 06/08/19 21:00 06/10/19 10:55 Flagyl 500mg Premixed Ivpb - IVPB 100 mls/hr Q8H-IV TOYA Administration Sodium Chloride 1,000 mls @ 83 mls/hr 06/08/19 22:30 06/09/19 23:11 Normal Saline - IV 83 mls/hr ASDIR TOYA Administration Insulin Aspart 1 vial 06/09/19 07:00 06/10/19 08:02 Novolog Vial Sliding Scale - SQ Not Given ACHS TOYA Protocol Lisinopril 5 mg 06/10/19 16:26 Prinivil PO DAILY TOYA Pantoprazole Sodium 40 mg 06/10/19 10:00 06/10/19 10:55 Protonix - PO 40 mg DAILY TOYA Administration Home Medications Medication Instructions Recorded Amlodipine Besylate 10 mg PO DAILY 06/09/19 Atorvastatin Ca [Lipitor] 80 mg DAILY 06/09/19 Furosemide 40 mg DAILY 06/09/19 Glipizide 10 mg BID 06/09/19 Hydrochlorothiazide [Hctz -] 25 mg DAILY 06/09/19 Linezolid 600 mg BID 06/09/19 Lisinopril 5 mg PO DAILY 06/09/19 Metformin HCl [Glucophage] 1,000 mg BID 06/09/19 Omeprazole 40 mg DAILY 06/09/19 Pioglitazone HCl [Actos] 30 mg DAILY 06/09/19 Sitagliptin Phosphate [Januvia] 100 mg DAILY 06/09/19 ASSESSMENT AND PLAN: 68 year old male with history of DM 2, HTN, PVD, PUD s/p repair, on antibiotics for L great toe infection ?osteomyelitis, admitted with prolonged periods of watery diarrhea - denies hematochezia/abdominal pain/nausea/vomiting/fever/ chills. 1. Diarrhea, likely secondary to Antibiotic Use. Cdiff requested along with Stool Cx - no stool produced so far. On Flagyl empirically. Afebrile, Hemodynamically Stable. Tolerating diet. 2. Pancytopenia - etiology unclear. HIV negative. Attempts made to reach out to patient's PCP Dr. Da Silva to enquire re: any hematological diagnoses. No signs of acute infection. Possible dx of chronic osteomyleitis - will confirm with PCP. 3. Anemia, likely multifactorial, including Iron deficiency. Reported blood per rectum on PE in ED. FOBT requested. Iron Sat 8% - No evidence of acute blood loss. Will monitor H/H (stable). Hold off iron replacement until Stool sample for FOBT obtained. 4. Hyperkalemia - repleted. 5. Hypomagnesemia - repleted. 6. Moderate pericardial Effusion on CT - confirmed on Echo. No clinical signs of tamponade. Cardiology eval requested. 7. 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 GI consulted. 8. Bilateral Adrenal Gland thickening on CT - no abnormality detected on MRI. For non-urgent contrast enhanced MRI as out-patient. 9. L Renal upper and lower pole cysts - incidental CT finding - recommendation for non-urgent contrast enhanced MRI. 10. L Great toe infected Ulcer ? Osteomyelitis - will need medical records from PCP. Abx currently held de to diarrhea. DVT Px - SCDs.
--- NOTE | 2019-06-10 11:53 | PN ---
Physical Exam: SUBJECTIVE: Patient seen and examined in the morning. No acute events overnight. No complaints of abdominal pain, shortness of breath, chest pain, fevers, chills. Medical records obtained, in chart now. OBJECTIVE: Vital Signs Period Temp Pulse Resp BP Sys/Newton Pulse Ox Last 24 Hr 98.1 F-98.3 F 75-88 17-18 122-152/53-76 100 GENERAL: The patient is awake, alert, and fully oriented, in no acute distress. HEAD: Normal with no signs of trauma. EYES: PERRL, extraocular movements intact, sclera anicteric, conjunctiva clear. NECK: Trachea midline, full range of motion, supple. LUNGS: Breath sounds equal, clear to auscultation bilaterally, no wheezes, no crackles. HEART: Regular rate and rhythm, S1, S2, 2/6 systolic murmur. ABDOMEN: Soft, nontender, nondistended, normoactive bowel sounds, no guarding. Rectal exam negative. Normal sphincter tone. No stool in vault. EXTREMITIES: 2+ pulses, warm, well-perfused, no edema. Big toe on the left foot has ulceration that is healing but no pus or bleed oozing out. NEUROLOGICAL: Cranial nerves II through XII grossly intact. Normal speech. PSYCH: Normal mood, normal affect. SKIN: Warm, dry, normal turgor, no rashes or lesions noted Laboratory Results - last 24 hr 06/09/19 06/09/19 06/09/19 14:30 17:39 22:11 WBC RBC Hgb Hct MCV MCH MCHC RDW Plt Count MPV Absolute Neuts (auto) Neutrophils % Lymphocytes % Monocytes % Eosinophils % Basophils % Nucleated RBC % Sodium Potassium Chloride Carbon Dioxide Anion Gap BUN Creatinine Est GFR (CKD-EPI)AfAm Est GFR (CKD-EPI)NonAf POC Glucometer 118 167 Random Glucose Calcium HIV 1&2 Ag/Ab, 4th Gen Non reactive 06/10/19 06/10/19 06/10/19 06:56 09:22 09:22 WBC 3.3 L RBC 2.89 L Hgb 8.3 L Hct 25.2 L MCV 87.1 MCH 28.8 MCHC 33.0 RDW 14.6 Plt Count 157 D MPV 8.3 Absolute Neuts (auto) 1.8 Neutrophils % 53.5 Lymphocytes % 27.3 Monocytes % 17.8 H Eosinophils % 1.3 Basophils % 0.1 Nucleated RBC % 0 Sodium 138 Potassium 5.1 Chloride 108 H Carbon Dioxide 25 Anion Gap 4 L BUN 10.4 Creatinine 0.7 Est GFR (CKD-EPI)AfAm 113.98 Est GFR (CKD-EPI)NonAf 98.34 POC Glucometer 87 Random Glucose 165 H Calcium 8.5 HIV 1&2 Ag/Ab, 4th Gen 06/10/19 11:02 WBC RBC Hgb Hct MCV MCH MCHC RDW Plt Count MPV Absolute Neuts (auto) Neutrophils % Lymphocytes % Monocytes % Eosinophils % Basophils % Nucleated RBC % Sodium Potassium Chloride Carbon Dioxide Anion Gap BUN Creatinine Est GFR (CKD-EPI)AfAm Est GFR (CKD-EPI)NonAf POC Glucometer 290 Random Glucose Calcium HIV 1&2 Ag/Ab, 4th Gen Active Medications Generic Name Dose Route Start Last Admin Trade Name Freq PRN Reason Stop Dose Admin Amlodipine Besylate 10 mg 06/10/19 10:00 06/10/19 10:55 Norvasc - PO 10 mg DAILY TOYA Administration Atorvastatin Calcium 40 mg 06/09/19 22:00 06/09/19 22:09 Lipitor - PO 40 mg HS TOYA Administration Furosemide 40 mg 06/10/19 10:00 06/10/19 10:55 Lasix - PO 40 mg DAILY TOYA Administration Metronidazole 500 mg in 100 mls @ 100 mls/hr 06/08/19 21:00 06/10/19 10:55 Flagyl 500mg Premixed Ivpb - IVPB 100 mls/hr Q8H-IV TOYA Administration Sodium Chloride 1,000 mls @ 83 mls/hr 06/08/19 22:30 06/09/19 23:11 Normal Saline - IV 83 mls/hr ASDIR TOYA Administration Iron Sucrose 200 mg/ Sodium 100 mls @ 100 mls/hr 06/10/19 12:00 Chloride IVPB 06/10/19 12:59 ONCE ONE Insulin Aspart 1 vial 06/09/19 07:00 06/10/19 08:02 Novolog Vial Sliding Scale - SQ Not Given ACHS TOYA Protocol Lisinopril 5 mg 06/10/19 16:26 Prinivil PO DAILY TOYA Pantoprazole Sodium 40 mg 06/10/19 10:00 06/10/19 10:55 Protonix - PO 40 mg DAILY TOYA Administration ASSESSMENT/PLAN: 68 M with PMH of DM, HTN, Peptic ulcer disease s/p gastrectomy, and PVD who presents with diarrhea without abdominal pain. 1) Diarrhea - Patient has had 3 weeks of nonbloody diarrhea with about 6-8 BM a day since starting an antibiotic on May 12. Stop taking antibiotic last Friday. -1 large bowel movement today. soft and formed, not diarrhea. -F/U C. Diff culture -F/U Stool Ova and Parasites -HIV nonreactive. -F/U FOBT -Abdominal MRCP shows:Cholelithiasis with no definite MRI evidence of cholecystitis. No choledocholithiasis or biliary ductal dilatation. Tortuous and dilated pancreatic duct in the head region on which the CBD appear to insert much proximal to the expected insertion in the region of the ampulla. This could represent a congenital anomaly with variant long common channel however stricture at the pancreatic duct or an occult neoplastic process cannot BE excluded. Short-term follow-up is recommended. Alternatively ERCP with endoscopic ultrasound may be obtained for further evaluation. -GI consulted, appreciate recs 2)CTA/P shows pericardial effusion -Echo shows: The left ventricular size, thickness and function are normal The left ventricular ejection fraction is normal. The left ventricular wall motion is normal. There is mild mitral regurgitation. There is moderate tricuspid regurgitation. Right ventricular systolic pressure is normal. There is mild aortic sclerosis.; There is mild aortic valve thickening. The aortic valve is trileaflet. E/A reversal consistent with but not diagnostic of poor LV compliance Moderate pericardial effusion (1-2 cm) -Cardiology consulted, appreciate recs 3)CTA/P shows b/l adrenal thickening -Abdominal MRI shows unremarkable adrenal glands. 4)Anemia -Pancytopenia -Medical records from PCP does not show anemia. However patient is being treated with iron sulfate as outpatient. -Iron deficiency anemia -IV venofer given 5) L cortical renal cyst Simple bilateral renal cysts. 1.5 cm left lower renal pole lesion with high T1 and low T2 signal possibly cyst with internal proteinaceous material however restricted diffusion is seen. 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 F: NS @ 83 ml/hr E: Monitor BMP N: Sodium/diabetes diet DVT: SCD Visit type - Emergency Visit Emergency Visit: Yes ED Registration Date: 06/08/19 Care time: The patient presented to the Emergency Department on the above date and was hospitalized for further evaluation of their emergent condition. - New Patient This patient is new to me today: No - Critical Care Critical Care patient: No ATTENDING PHYSICIAN STATEMENT I saw and evaluated the patient. I reviewed the resident's note and discussed the case with the resident. I agree with the resident's findings and plan as documented. SUBJECTIVE: OBJECTIVE: ASSESSMENT AND PLAN:
[2019-06-10] MEDS ORDERED: IRON SUCROSE INJECTION 200 MG in SODIUM CHLORIDE 90 ML IVPB ONE (12:00)
[2019-06-10] MEDS ORDERED: PT OWN MED DRAWER 7, Y5N ONE (14:01)
--- NOTE | 2019-06-10 14:43 | CON.GI ---
Consult Consult Specialty:: GI Referred by:: Hospitalist Service Reason for Consultation:: Anemia, diarrhea, abnormal MRCP - History of Present Illness Chief Complaint: "I had diarrhea. It stopped on friday". [facility]hesiology crna [id number] utilized as Mr. Valdez speaks only [place]. History of Present Illness: 68M admitted on 06/08 with complaints of diarrhea. He is somewhat vavgue in his description of the diarrhea but says he was having multiple loose to watery BM's throughout the day starting 05/12/19. It would occur at any point through the day and night and did awaken him at times. He recalls using an "antibiotic he was given for a toe ulcer" prior to the diarrhea starting and alludes to being treated with ? hyperbaric therapy. He did not speak with his PMD regarding this complaint. He also believes that during this time he lost about 15 pounds. He denies chronic diarrhea or associated rectal bleeding / melena. He was noted to be anemic. He stated "yes I know, I have been given vitamin B and iron by my medical ddoctor Dr. Krishna Da Silva". He thinks he may have had a colonoscopy remotely. He is uncertain if he has had an upper endoscopy. He had a surgery for ? bleeding gastric ulcer in 1993 and ? bowel perforation in 2006. Currently, Diarrhea has resolved and per his nurse he had a large soft BM today. He denies fevers/chills. CT scan on admission 06/08 revealed a dilated pancreatic duct at the head of the pancreas. A follow-up non contrast MRCP was performed that revealed a 9mm pancreatic duct at the head of the pancreas. 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 Liver chemistries are normal. He denies chronic GERD but is on PPI on admission. He denies recent change in medication regimen. - History Source History Provided By: Patient, Medical Record Limitations to Obtaining History: No Limitations - Past Medical History Cardio/Vascular: Yes: HTN, Other (PVD) Endocrine: Yes: Diabetes Mellitus (DM II) - Past Surgical History Additional Surgical History: ? Partial gastrectomy 1993 and bowel perforation surgery 2006. 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 (year[place] 1993 History of Recent Travel: No Home Medications - Allergies Allergies/Adverse Reactions: Allergies Allergy/AdvReac Type Severity Reaction Status Date / Time No Known Allergies Allergy Verified 06/08/19 12:28 - Home Medications Home Medications: Ambulatory Orders Amlodipine Besylate 10 mg PO DAILY 06/09/19 Atorvastatin Ca [Lipitor] 80 mg DAILY 06/09/19 Furosemide 40 mg DAILY 06/09/19 Glipizide 10 mg BID 06/09/19 Hydrochlorothiazide [Hctz -] 25 mg DAILY 06/09/19 Linezolid 600 mg BID 06/09/19 Lisinopril 5 mg PO DAILY 06/09/19 Metformin HCl [Glucophage] 1,000 mg BID 06/09/19 Omeprazole 40 mg DAILY 06/09/19 Pioglitazone HCl [Actos] 30 mg DAILY 06/09/19 Sitagliptin Phosphate [Januvia] 100 mg DAILY 06/09/19 Review of Systems - Review of Systems Constitutional: reports: Unintentional Wgt. Loss. denies: Chills, Fever Cardiovascular: denies: Chest Pain Respiratory: denies: Cough Gastrointestinal: reports: Diarrhea. denies: Abdominal Pain, Constipation, Melena, Rectal Bleeding, Vomiting Musculoskeletal: denies: Back Pain Physical Exam-GI Vital Signs: Vital Signs Temperature 98.1 F 06/09/19 22:00 Pulse Rate 87 06/10/19 08:58 Respiratory Rate 18 06/10/19 08:58 Blood Pressure 148/71 06/10/19 08:58 O2 Sat by Pulse Oximetry (%) 100 06/09/19 21:00 Constitutional: Yes: Calm Eyes: No: Sclera Icterus Cardiovascular: Yes: Regular Rate and Rhythm. No: Murmur Respiratory: Yes: CTA Bilaterally Gastrointestinal Inspection: Yes: Scars (Long vertical midline surgical scar). No: Distention ...Auscultate: Yes: Normoactive Bowel Sounds ...Palpate: Yes: Soft. No: Hepatomegaly, Splenomegaly, Tenderness ...Percussion: No: Tympanitic ...Rectal Exam: Yes: Other (No external lesions, no masses, no blood/stool) Edema: No (No LE edema) Neurological: Yes: Alert Labs: CBC, BMP 06/10/19 09:22 06/10/19 09:22 INR, PTT INR 1.07 (0.83-1.09) 06/09/19 08:40 Hepatic Panel Total Bilirubin 0.2 mg/dL (0.2-1) 06/09/19 08:40 AST 10 U/L (15-37) L 06/09/19 08:40 ALT 18 U/L (13-61) 06/09/19 08:40 Alkaline Phosphatase 76 U/L (45-117) 06/09/19 08:40 Albumin 2.9 g/dl (3.4-5.0) L 06/09/19 08:40 Problem List - Problems (1) Diarrhea Assessment/Plan: Acute diarrhea Seems to have resolved without intervention. He also has not been receiving his oral diabetic meds. ? if medication playing a role. Consider monitoring for resumed diarrhea upon resumption of other home medications. Code(s): R19.7 - DIARRHEA, UNSPECIFIED (2) Pancytopenia Assessment/Plan: Unclear cause Anemia with iron deficiency component. ? if gastroectomy playing a role in decreawsed iron absorption. Alternate etiologies need to be excluded. Discussed plan for EGD/Colonoscopy with Mr. Valdez via [employer] firefighter type one [id number]. DIscussed potential risks of the procedures like but not limited to bleeding, perforation requiring surgery to repair, infection, sedation medication effects all of which could be potentially life threatening. He has agreed to the procedures. Consider hematology evaluation given that there is pancytopenia present. Discontinue PPI Code(s): D61.818 - OTHER PANCYTOPENIA (3) Pancreatic ductal abnormality Assessment/Plan: Noted on CT scan and non contrast MRCP. ? APBJ as well. Consider contrast MRI of the abdomen with contrast for further evaluation. Outpatient evaluation with EUS at [facility] with biliary endoscopist Dr. Zain Gill. Liver chemistries normal. Code(s): Q45.3 - OTH CONGENITAL MALFORMATIONS OF PANCREAS AND PANCREATIC DUCT (4) Renal cyst Assessment/Plan: Noted on MRI. Follow-up per primary team Code(s): N28.1 - CYST OF KIDNEY, ACQUIRED
[2019-06-10] MEDS ORDERED: BISACODYL 5 MG TABLET.DR (FP) PO ONE (16:00)
--- NOTE | 2019-06-10 16:25 | CON.CARD ---
Consult Consult Specialty:: Cardiology Referred by:: Hospitalist Reason for Consultation:: pericardial effusion - History of Present Illness Chief Complaint: diarrhea History of Present Illness: 68 year old man with pmh HTN, DM, PUD s/p gastrectomy in past, PAD, admitted with persistent diarrhea and abd pain, pancytopenia, incidentally noted to have a moderate pericardial effusion on CT abd confirmed on echo. Pt seen and examined in nad. sitting on side of bed. pt denies any chest pain, sob, palpitations, lightheadedness, dizziness, syncope or near syncope. - History Source History Provided By: Patient, Medical Record Limitations to Obtaining History: No Limitations - Past Medical History Cardio/Vascular: Yes: HTN, Other (PVD) Endocrine: Yes: Diabetes Mellitus (DM II) - Past Surgical History Additional Surgical History: ? Partial gastrectomy 1993 and bowel perforation surgery 2006. 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 Travel: No Home Medications - Allergies Allergies/Adverse Reactions: Allergies Allergy/AdvReac Type Severity Reaction Status Date / Time No Known Allergies Allergy Verified 06/08/19 12:28 - Home Medications Home Medications: Ambulatory Orders Amlodipine Besylate 10 mg PO DAILY 06/09/19 Atorvastatin Ca [Lipitor] 80 mg DAILY 06/09/19 Furosemide 40 mg DAILY 06/09/19 Glipizide 10 mg BID 06/09/19 Hydrochlorothiazide [Hctz -] 25 mg DAILY 06/09/19 Linezolid 600 mg BID 06/09/19 Lisinopril 5 mg PO DAILY 06/09/19 Metformin HCl [Glucophage] 1,000 mg BID 06/09/19 Omeprazole 40 mg DAILY 06/09/19 Pioglitazone HCl [Actos] 30 mg DAILY 06/09/19 Sitagliptin Phosphate [Januvia] 100 mg DAILY 06/09/19 Review of Systems - Review of Systems Constitutional: denies: No Symptoms, Chills, Diaphoresis, Fever, Lethargy, Loss of Appetite, Malaise, Night Sweats, Unintentional Wgt. Loss, Weakness, Other Eyes: denies: No Symptoms, Blind Spots, Blurred Vision, Double Vision, Eye Pain , Floaters, Photophobia, Recent Change in Vision, Other HENT: denies: No Symptoms, Difficult Swallowing, Ear Discharge, Ear Pain, Epistaxis, Gingival Bleeding, Hearing Loss, Mouth Swelling, Nasal Congestion, Ocular Prosthesis, Throat Pain, Toothache, Ringing in Ears, Other Neck: denies: No Symptoms, Decreased ROM, Lumps, Pain on Movement, Stiffness, Swollen Glands, Tenderness, Other Cardiovascular: denies: No Symptoms, Chest Pain, Edema, Palpitations, Shortness of Breath, Other Respiratory: denies: No Symptoms, Cough, Exercise Intolerance, Hemoptysis, Orthopnea, PND, Snoring, SOB, SOB on Exertion, Wheezing, Other Gastrointestinal: reports: Abdominal Pain, Diarrhea. denies: No Symptoms, Bloating, Constipation, Dysphagia, Indigestion, Melena, Nausea, Rectal Bleeding , Vomiting, Vomiting Blood, Other Genitourinary: denies: No Symptoms, Burning, Discharge, Dysuria, Flank Pain, Frequency, Hematuria, Incontinence, Lesions, Menses, Pain, Testicular Mass, Testicular Pain, Testicular Swelling, Urgency, Vaginal Bleeding, Other Breasts: denies: No Symptoms Reported, See HPI, Breast Implants, Discharge from Nipple, Lumps, Pain, Skin Changes, Other Musculoskeletal: denies: No Symptoms, Back Pain, Crepitus, Decreased ROM, Extremity Pain, Joint Pain, Joint Swelling, Muscle Pain, Muscle Cramps, Muscle Weakness, Other Integumentary: denies: No Symptoms, Blister, Bruising, Change in Color, Eczema, Erythema, Incision, Lesions, Lump, Pallor, Pruritis, Rash, Wound, Other Neurological: denies: No Symptoms, Change in LOC, Change in Speech, Confusion, Dizziness, Headache, Incoordination, Numbness, Parasthesia, Pre-Existing Deficit , Seizure, Syncope, Tremors, Unsteady Gait, Weakness, Other Endocrine: denies: No Symptoms, Excessive Sweating, Flushing, Increased Hunger, Increased Thirst, Intolerance to Cold, Intolerance to Heat, Unexplained Weight Gain, Unexplained Weight Loss, Other Hematology/Lymphatic: denies: No Symptoms, Easily Bruised, Excessive Bleeding, Swollen Glands, Other Psychiatric: denies: No Symptoms, Altered Sleep Pattern, Anxiety, Depression, Hallucinations, Panic, Paranoia, Suicidal, Other Vital Signs: Vital Signs Temperature 98.3 F 06/10/19 14:00 Pulse Rate 90 06/10/19 14:00 Respiratory Rate 18 06/10/19 14:00 Blood Pressure 111/55 L 06/10/19 14:00 O2 Sat by Pulse Oximetry (%) 100 06/09/19 21:00 Constitutional: Yes: No Distress, Calm, Thin Eyes: Yes: Conjunctiva Clear, EOM Intact, PERRL HENT: Yes: Atraumatic, Normocephalic Neck: Yes: Supple, Trachea Midline Respiratory: Yes: Regular, CTA Bilaterally. No: Rales, Rhonchi, SOB, Wheezes Gastrointestinal: Yes: Normal Bowel Sounds Cardiovascular: Yes: Regular Rate and Rhythm. No: Bradycardia, Tachycardia, Pulse Irregular, Gallop, Rub, Varicosities JVD: No Carotid Bruit: No PMI: Non-Displaced Heart Sounds: Yes: S1, S2. No: Split S2, S3, S4, Clicks, Gallop, Rub, Bruit Murmur: No: Systolic Murmur, Diastolic Murmur Edema: No Peripheral Pulses WNL: Yes Neurological: Yes: Alert, Oriented Psychiatric: Yes: Alert, Oriented - Other Data Labs, Other Data: CBC, BMP 06/10/19 09:22 06/10/19 09:22 INR, PTT INR 1.07 (0.83-1.09) 06/09/19 08:40 nsr 64bpm, nsst Echo: Report Reviewed Imaging - Results Chest X-ray: Report Reviewed, Image Reviewed EKG: Report Reviewed, Image Reviewed Other: Report Reviewed, Image Reviewed Assessment/Plan 68 year old man with pmh HTN, DM, PUD s/p gastrectomy in past, PAD, admitted with persistent diarrhea and abd pain, pancytopenia, incidentally noted to have a moderate pericardial effusion on CT abd confirmed on echo. Pt seen and examined in nad. sitting on side of bed. pt denies any chest pain, sob, palpitations, lightheadedness, dizziness, syncope or near syncope. Pericardial effusion- -incidentally found, no echo evidence of tamponade physiology reported, no clinical signs or symptoms of tamponade -presume pericardial effusion related to pts current systemic illness -no indication for pericardiocentesis at this time. -echo also showed normal LVEF, mild mr, mod tr -ongoing workup for presenting symptoms and findings of diarrhea, pancytopenia, abd pain -malignancy work up -check TFTs -planned for endoscopy tomorrow -there is no cardiac contraindication to proceeding with endoscopy -maintain adequate intravascular volume with IVF if needed and PRBCs if needed
[2019-06-10] MEDS: LISINOPRIL 5 MG TABLET (FP) PO SCH (16:35)
[2019-06-10] MEDS ORDERED: PEG 3350/NA SULF BICARB CL/KCL 4000 ML SOLN.RECON PO ONE (17:00)
[2019-06-10] MEDS ORDERED: INSULIN (NOVOLOG) ASPART 100 UNITS/ML 10ML VIAL ONE (21:32)
[2019-06-10] MEDS: ATORVASTATIN CA 80 MG TABLET (FP) PO SCH (21:51)
[2019-06-10] MEDS: SODIUM CHLORIDE 1,000 ML IV SCH (21:53)
[2019-06-11] MEDS: INSULIN SLIDING SCALE (NOVOLOG) 1 VIAL SQ SCH ×3 (08:06→17:22)
[2019-06-11 08:49] LABS: BASO % 0.1 % (0-2.0); EOS % 1.5 % (0-4.5); HEMATOCRIT 23.7 % (35.4-49); HEMOGLOBIN 7.9 GM/dL (11.7-16.9); LYMPH % 26.7 % (8-40); MCHC 33.2 g/dl (32.0-35.9); MEAN CELL VOLUME 87.2 fl (80-96); MEAN PLT VOLUME 8.5 fl (7.5-11.1); MONO % 18.2 % (3.8-10.2); NEUT % 53.5 % (42.8-82.8); PLATELET COUNT 189 K/MM3 (134-434); RBC 2.72 M/mm3 (4.00-5.60); RDW 14.6 % (11.9-15.9); WHITE BLOOD COUNT 4.1 K/mm3 (4.0-10.0)
[2019-06-11 09:30] LABS: ALBUMIN 3.2 g/dl (3.4-5.0); BILIRUBIN,TOTAL 0.3 mg/dL (0.2-1); BLOOD UREA NITROGEN 9.8 mg/dL (7-18); CALCIUM 7.9 mg/dL (8.5-10.1); CREATININE 0.7 mg/dL (0.55-1.3); POTASSIUM 3.8 mmol/L (3.5-5.1); TOT PROT 5.7 g/dl (6.4-8.2)
[2019-06-11] MEDS: FUROSEMIDE 40 MG TABLET (FP) PO SCH (11:46)
[2019-06-11] MEDS: amLODIPine BESYLATE 10 MG TABLET (FP) PO SCH (11:46)
[2019-06-11] MEDS: LISINOPRIL 5 MG TABLET (FP) PO SCH (11:47)
--- NOTE | 2019-06-11 13:08 | PN ---
Teaching Attending Note Name of Resident: Kendall Ellis ATTENDING PHYSICIAN STATEMENT I saw and evaluated the patient. I reviewed the resident's note and discussed the case with the resident. I agree with the resident's findings and plan as documented. SUBJECTIVE: No more diarrhea. Reports 1 month Hx of watery diarrhea. No abdominal pain/nausea/vomiting/fever/chills. OBJECTIVE: Afebrile, Hemodynamically Stable. Last Vital Signs Temp Pulse Resp BP Pulse Ox 98.0 F 75 18 136/92 100 06/11/19 06:00 06/11/19 06:00 06/11/19 06:00 06/11/19 06:00 06/10/19 21:00 Heart - S1, S2, RRR Lungs - clear to auscultation Abdomen - Soft, non-tender. Bowel Sounds normal. Extremities - no edema, no calf tenderness. L great toe ulcer, no purulence or surrounding erythema Laboratory Results - last 24 hr 06/10/19 06/10/19 06/11/19 16:39 21:37 07:17 WBC RBC Hgb Hct MCV MCH MCHC RDW Plt Count MPV Absolute Neuts (auto) Neutrophils % Lymphocytes % Monocytes % Eosinophils % Basophils % Nucleated RBC % Sodium Potassium Chloride Carbon Dioxide Anion Gap BUN Creatinine Est GFR (CKD-EPI)AfAm Est GFR (CKD-EPI)NonAf POC Glucometer 186 182 97 Random Glucose Calcium Total Bilirubin AST ALT Alkaline Phosphatase Total Protein Albumin Serum Folate TSH Blood Type Antibody Screen 06/11/19 06/11/19 06/11/19 07:50 07:50 07:50 WBC 4.1 RBC 2.72 L Hgb 7.9 L Hct 23.7 L MCV 87.2 MCH 29.0 MCHC 33.2 RDW 14.6 Plt Count 189 D MPV 8.5 Absolute Neuts (auto) 2.2 Neutrophils % 53.5 Lymphocytes % 26.7 Monocytes % 18.2 H Eosinophils % 1.5 Basophils % 0.1 Nucleated RBC % 0 Sodium 143 Potassium 3.8 Chloride 110 H Carbon Dioxide 27 Anion Gap 7 L BUN 9.8 Creatinine 0.7 Est GFR (CKD-EPI)AfAm 113.98 Est GFR (CKD-EPI)NonAf 98.34 POC Glucometer Random Glucose 104 Calcium 7.9 L Total Bilirubin 0.3 AST 21 ALT 28 Alkaline Phosphatase 91 Total Protein 5.7 L Albumin 3.2 L Serum Folate 14 TSH 1.78 Blood Type O POSITIVE Antibody Screen Negative 06/11/19 11:50 WBC RBC Hgb Hct MCV MCH MCHC RDW Plt Count MPV Absolute Neuts (auto) Neutrophils % Lymphocytes % Monocytes % Eosinophils % Basophils % Nucleated RBC % Sodium Potassium Chloride Carbon Dioxide Anion Gap BUN Creatinine Est GFR (CKD-EPI)AfAm Est GFR (CKD-EPI)NonAf POC Glucometer 90 Random Glucose Calcium Total Bilirubin AST ALT Alkaline Phosphatase Total Protein Albumin Serum Folate TSH Blood Type Antibody Screen Current Medications Generic Name Dose Route Start Last Admin Trade Name Fernandoq PRN Reason Stop Dose Admin Amlodipine Besylate 10 mg 06/10/19 10:00 06/11/19 11:46 Norvasc - PO 10 mg DAILY TOYA Administration Atorvastatin Calcium 40 mg 06/09/19 22:00 06/10/19 21:51 Lipitor - PO 40 mg HS TOYA Administration Furosemide 40 mg 06/10/19 10:00 06/11/19 11:46 Lasix - PO 40 mg DAILY TOYA Administration Metronidazole 500 mg in 100 mls @ 100 mls/hr 06/08/19 21:00 06/11/19 11:46 Flagyl 500mg Premixed Ivpb - IVPB 100 mls/hr Q8H-IV TOYA Administration Sodium Chloride 1,000 mls @ 83 mls/hr 06/08/19 22:30 06/10/19 21:53 Normal Saline - IV 83 mls/hr ASDIR TOYA Administration Insulin Aspart 1 vial 06/09/19 07:00 06/11/19 12:50 Novolog Vial Sliding Scale - SQ Not Given ACHS TOYA Protocol Lisinopril 5 mg 06/10/19 16:26 06/11/19 11:47 Prinivil PO 5 mg DAILY TOYA Administration Home Medications Medication Instructions Recorded Amlodipine Besylate 10 mg PO DAILY 06/09/19 Atorvastatin Ca [Lipitor] 80 mg DAILY 06/09/19 Furosemide 40 mg DAILY 06/09/19 Glipizide 10 mg BID 06/09/19 Hydrochlorothiazide [Hctz -] 25 mg DAILY 06/09/19 Linezolid 600 mg BID 06/09/19 Lisinopril 5 mg PO DAILY 06/09/19 Metformin HCl [Glucophage] 1,000 mg BID 06/09/19 Omeprazole 40 mg DAILY 06/09/19 Pioglitazone HCl [Actos] 30 mg DAILY 06/09/19 Sitagliptin Phosphate [Januvia] 100 mg DAILY 06/09/19 ASSESSMENT AND PLAN: 68 year old male with history of DM 2, HTN, PVD, PUD s/p repair, on antibiotics for L great toe infection ?osteomyelitis, admitted with prolonged periods of watery diarrhea - denies hematochezia/abdominal pain/nausea/vomiting/fever/ chills. 1. Diarrhea, likely secondary to Antibiotic Use - resolved. Cdiff requested along with Stool Cx - no stool produced so far. On Flagyl empirically. Afebrile, Hemodynamically Stable. Tolerating diet. 2. Pancytopenia - etiology unclear. HIV negative. Attempts made to reach out to patient's PCP Dr. Da Silva to enquire re: any hematological diagnoses. No signs of acute infection. Possible dx of chronic osteomyleitis - will confirm with PCP. 3. Anemia, likely multifactorial, including Iron deficiency. Reported blood per rectum on PE in ED. Iron Sat 8% - No evidence of acute blood loss. IV Venofer given. Can be given FeSO4 on discharge. Will monitor H/H (stable). GI consulted - for EGD/Colonoscopy today. 4. Hyperkalemia - repleted. 5. Hypomagnesemia - repleted. 6. Moderate pericardial Effusion on CT - confirmed on Echo. No clinical signs of tamponade. Cardiology evaluated - no further inpatient work-up required. 7. 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 GI consulted and recommends EUS with Dr. Gill at [facility]. 8. Bilateral Adrenal Gland thickening on CT - no abnormality detected on MRI. For non-urgent contrast enhanced MRI as out-patient. 9. L Renal upper and lower pole cysts - incidental CT finding - recommendation for non-urgent contrast enhanced MRI. 10. L Great toe infected Ulcer ? Osteomyelitis - will need medical records from PCP. Abx currently held de to diarrhea. DVT Px - SCDs.
[2019-06-11 15:04] VITALS: TEMP 97.5
--- NOTE | 2019-06-11 15:33 | PN ---
Progress Note (short form) - Note Progress Note: EGD/Colonoscopy complete. Reports left in procedural section of the physical chart and will be scanned into [employer]. Problem List - Problems (1) Diarrhea Code(s): R19.7 - DIARRHEA, UNSPECIFIED (2) Pancytopenia Code(s): D61.818 - OTHER PANCYTOPENIA (3) Pancreatic ductal abnormality Code(s): Q45.3 - OTH CONGENITAL MALFORMATIONS OF PANCREAS AND PANCREATIC DUCT (4) Renal cyst Code(s): N28.1 - CYST OF KIDNEY, ACQUIRED
[2019-06-11 15:41] VITALS: BP 132/48; PULSE 61
--- NOTE | 2019-06-11 15:47 | PN ---
Progress Note, Physician History of Present Illness: seen and examined today in nad. prior to endoscopy. lying flat. no complaints. no overnight events. - Current Medication List Current Medications: Active Medications Amlodipine Besylate (Norvasc -) 10 mg PO DAILY [facility] Last Admin: 06/11/19 11:46 Dose: 10 mg Atorvastatin Calcium (Lipitor -) 40 mg PO HS [facility] Last Admin: 06/10/19 21:51 Dose: 40 mg Furosemide (Lasix -) 40 mg PO DAILY [facility] Last Admin: 06/11/19 11:46 Dose: 40 mg Sodium Chloride (Normal Saline -) 1,000 mls @ 83 mls/hr IV ASDIR [facility] Last Admin: 06/10/19 21:53 Dose: 83 mls/hr Insulin Aspart (Novolog Vial Sliding Scale -) 1 vial SQ ACHS [facility]; Protocol Last Admin: 06/11/19 12:50 Dose: Not Given Lisinopril (Prinivil) 5 mg PO DAILY [facility] Last Admin: 06/11/19 11:47 Dose: 5 mg - Objective Vital Signs: Vital Signs Temperature 97.5 F L 06/11/19 14:55 Pulse Rate 61 06/11/19 15:40 Respiratory Rate 18 06/11/19 15:40 Blood Pressure 132/48 L 06/11/19 15:40 O2 Sat by Pulse Oximetry (%) 100 06/11/19 15:40 Constitutional: Yes: No Distress, Calm Eyes: Yes: Conjunctiva Clear, EOM Intact HENT: Yes: Atraumatic, Normocephalic Neck: Yes: Supple, Trachea Midline Cardiovascular: Yes: Regular Rate and Rhythm, S1, S2. No: Bradycardia, Tachycardia, Pulse Irregular, Bruit, JVD, Gallop, Murmur, Rub, S3, S4, Varicosities Respiratory: Yes: Regular, CTA Bilaterally. No: Rales, Rhonchi, Wheezes Gastrointestinal: Yes: Normal Bowel Sounds, Soft Extremities: Yes: WNL Edema: No Peripheral Pulses WNL: Yes Peripheral Pulses: Left Doralis Pedis: 2+, Right Dorsalis Pedis: 2+ Neurological: Yes: Alert, Oriented Psychiatric: Yes: Alert, Oriented Labs: CBC, BMP 06/11/19 07:50 06/11/19 07:50 INR, PTT INR 1.07 (0.83-1.09) 06/09/19 08:40 - ....Imaging Chest X-ray: Report Reviewed, Image Reviewed EKG: Report Reviewed, Image Reviewed Other: Report Reviewed, Image Reviewed Assessment/Plan 68 year old man with pmh HTN, DM, PUD s/p gastrectomy in past, PAD, admitted with persistent diarrhea and abd pain, pancytopenia, incidentally noted to have a moderate pericardial effusion on CT abd confirmed on echo. Pt seen and examined in nad. sitting on side of bed. pt denies any chest pain, sob, palpitations, lightheadedness, dizziness, syncope or near syncope. Pericardial effusion- -incidentally found, no echo evidence of tamponade physiology reported, no clinical signs or symptoms of tamponade -presume pericardial effusion related to pts current systemic illness -no indication for pericardiocentesis at this time. -echo also showed normal LVEF, mild mr, mod tr -ongoing workup for presenting symptoms and findings of diarrhea, pancytopenia, abd pain -malignancy work up -TSH wnl -egd/colonoscopy done today, tolerated well from a cardiac standpoint -maintain adequate intravascular volume with IVF if needed and PRBCs if needed -no other inpatient cardiac work up is needed at this time. -[facility] outpatient fup with plan to repeat echo to re-evaluate pericardial effusion will see as needed. please call with any additional questions.
--- NOTE | 2019-06-11 18:19 | DS ---
Physical Exam: SUBJECTIVE: Patient seen and examined in the morning. No acute events overnight. No complaints of chest pain, shortness of breath, abdominal pain, nausea, vomiting, diarrhea. 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 OBJECTIVE: Vital Signs Period Temp Pulse Resp BP Sys/Newton Pulse Ox Last 24 Hr 97.5 F-98.2 F 60-78 14-20 99-148/44-92 99-100 PHYSICAL EXAM GENERAL: The patient is awake, alert, and fully oriented, in no acute distress. HEAD: Normal with no signs of trauma. LUNGS: Breath sounds equal, clear to auscultation bilaterally, no wheezes, no crackles, no accessory muscle use. HEART: Regular rate and rhythm, S1, S2 without murmur, rub or gallop. ABDOMEN: Soft, nontender, nondistended, normoactive bowel sounds. EXTREMITIES: 2+ pulses, warm, well-perfused, no edema. NEUROLOGICAL: Cranial nerves II through XII grossly intact. PSYCH: Normal mood, normal affect. LABS Laboratory Results - last 24 hr 06/10/19 06/11/19 06/11/19 21:37 07:17 07:50 WBC 4.1 RBC 2.72 L Hgb 7.9 L Hct 23.7 L MCV 87.2 MCH 29.0 MCHC 33.2 RDW 14.6 Plt Count 189 D MPV 8.5 Absolute Neuts (auto) 2.2 Neutrophils % 53.5 Lymphocytes % 26.7 Monocytes % 18.2 H Eosinophils % 1.5 Basophils % 0.1 Nucleated RBC % 0 Sodium Potassium Chloride Carbon Dioxide Anion Gap BUN Creatinine Est GFR (CKD-EPI)AfAm Est GFR (CKD-EPI)NonAf POC Glucometer 182 97 Random Glucose Calcium Total Bilirubin AST ALT Alkaline Phosphatase Total Protein Albumin Serum Folate TSH Blood Type Antibody Screen 06/11/19 06/11/19 06/11/19 07:50 07:50 11:50 WBC RBC Hgb Hct MCV MCH MCHC RDW Plt Count MPV Absolute Neuts (auto) Neutrophils % Lymphocytes % Monocytes % Eosinophils % Basophils % Nucleated RBC % Sodium 143 Potassium 3.8 Chloride 110 H Carbon Dioxide 27 Anion Gap 7 L BUN 9.8 Creatinine 0.7 Est GFR (CKD-EPI)AfAm 113.98 Est GFR (CKD-EPI)NonAf 98.34 POC Glucometer 90 Random Glucose 104 Calcium 7.9 L Total Bilirubin 0.3 AST 21 ALT 28 Alkaline Phosphatase 91 Total Protein 5.7 L Albumin 3.2 L Serum Folate 14 TSH 1.78 Blood Type O POSITIVE Antibody Screen Negative 06/11/19 16:43 WBC RBC Hgb Hct MCV MCH MCHC RDW Plt Count MPV Absolute Neuts (auto) Neutrophils % Lymphocytes % Monocytes % Eosinophils % Basophils % Nucleated RBC % Sodium Potassium Chloride Carbon Dioxide Anion Gap BUN Creatinine Est GFR (CKD-EPI)AfAm Est GFR (CKD-EPI)NonAf POC Glucometer 118 Random Glucose Calcium Total Bilirubin AST ALT Alkaline Phosphatase Total Protein Albumin Serum Folate TSH Blood Type Antibody Screen HOSPITAL COURSE: Date of Admission:06/08/19 Date of Discharge: 06/11/19 68 M with PMH of DM, HTN, Peptic ulcer disease s/p gastrectomy, and PVD who presents with diarrhea without abdominal pain. Patient had fewer bowel movements during admission. Was found to be pancytopenic during labwork. CTA/P was done which showed adrenal thickening, renal cyst, pericardial effusion, and cholelithaisis. MRCP was performed which showed pancreatic duct dilation, but unremarkable adrenal glands. GI was consulted, with endoscopy and colonoscopy performed. Endoscopy and colonoscopy did not show any active bleeding, pathology was sent off. Pt will follow up with GI for results. Patient received IV iron therapy the day before discharge. Patient recieved 2 days of IV flagyl for diarrhea, but was discontinued as diarrhea stopped. Patient was seen to be hyperkalemic on initial labwork but repeat lab work was stable. Cardiology was consulted for pericardial effusion, but was ruled stable. Patient was discharged with follow up with urology, GI, heme/onc, bomb technician, and his PCP for continued care of his co-morbidities. Imaging done this study: CT Abdomen: Increased intracolonic fluid is seen suggestive of current diarrheal illness. There is no obvious associated colonic wall edema or pericolonic edema/fluid. There is partial imaging of pericardial effusion which is possibly moderate in size. Correlation with echocardiography is suggested. Increased mesenteric density seen diffusely suggestive of edema. There is also concentric subcutaneous edema along the abdomen and pelvis. Surgical clips are seen adjacent to the gastroesophageal junction. Cholelithiasis. The main pancreatic duct within the head is dilated with a 0.9 cm diameter. MRI/ MRCP evaluation is suggested. 2.3 cm and 1.5 cm left renal cortical heterogeneous lesions are seen which may represent complex cysts and/or solid nodules. MRI evaluation is also suggested in this regard. Mild bilateral adrenal gland thickening. extensive atherosclerotic vascular calcifications. Chest X-Ray: Impression: No acute chest pathology. Possible bilateral cervical ribs. Correlation recommended. No comparison studies MRCP: Cholelithiasis with no definite MRI evidence of cholecystitis. No choledocholithiasis or biliary ductal dilatation. Tortuous and dilated pancreatic duct in the head region on which the CBD appear to insert much proximal to the expected insertion in the region of the ampulla. This could represent a congenital anomaly with variant long common channel however stricture at the pancreatic duct or an occult neoplastic process cannot BE excluded. Short-term follow-up is recommended. Alternatively ERCP with endoscopic ultrasound may be obtained for further evaluation. Extensive diffuse mesenteric edema suggestive of third spacing. Small to moderate pericardial effusion. Correlate with echocardiography to exclude tamponade physiology. Simple bilateral renal cysts. 1.5 cm left lower renal pole lesion with high T1 and low T2 signal possibly cyst with internal proteinaceous material however restricted diffusion is seen. Findings are commensurate with Bosniak 2F lesion. Follow-up with MRI with contrast is suggested on a nonemergent basis. Complex appearing left upper renal pole cyst with heterogeneous internal T1 signal and low T2 signal possibly cyst with superimposed infection or internal bleeding. This can also be followed up with the above suggested MRI with contrast. Echo: The left ventricular size, thickness and function are normal The left ventricular ejection fraction is normal. The left ventricular wall motion is normal. There is mild mitral regurgitation. There is moderate tricuspid regurgitation. Right ventricular systolic pressure is normal. There is mild aortic sclerosis.; There is mild aortic valve thickening. The aortic valve is trileaflet. E/A reversal consistent with but not diagnostic of poor LV compliance Moderate pericardial effusion (1-2 cm) Minutes to complete discharge: 35 Discharge Summary Problems reviewed: Yes Reason For Visit: ANEMIA Current Active Problems Anemia (Chronic) Pancreatic ductal abnormality (Chronic) Pancytopenia (Chronic) Renal cyst (Chronic) Condition: Good - Instructions Diet, Activity, Other Instructions: You were seen in the hospital for complaints of persistent diarrhea. We treated you with antibiotics and IV fluids. You had an endoscopy and colonoscopy performed while you were here. There were no signs of bleeding, please follow up with Dr. Rosales (Gastroenterology doctor) for pathology results. You were found to have abnormal imaging of your pancreas on Abdominal MRI. An appointment with Dr. Gill has been made to follow up. We have faxed your imaging results to the office already. You were found to have bilateral renal cysts on CT scan. Please follow up with the urologist to further evaluate the cysts. You were found to have pericardial effusion on echocardiogram. You were evaluated by cardiology, please follow up with them to continue monitoring your heart. You were found to be anemic while in the hospital. You were given IV Iron. Please consider further treatment with IV iron with your clubhouse attendant and primary care physician. You stopped your antibiotic therapy for your foot ulcer before coming to the hospital. Please follow up with Dr. Da Silva immediately to manage this infection. For your anemia please take: Iron tablets, 325 mg by mouth, twice daily. Colace 100 mg by mouth, twice daily. Please continue your medications as directed. Please avoid NSAIDs such as Motrin , Advil, Ibuprofen, and Aspirin. Please repeat your colonoscopy in 5 years. REFERRALS -Please follow up with Dr. Zain Gill at [facility] for outpatient endoscopic ultrasound for outpatient evaluation on 07/01/19 @ 1:20 PM. His address is [address] [place] [id number] [id number]. -Please follow up with Dr. Da Silva within 1 week. Repeat blood work should be done then ( CBC, CMP) and for determination of need for further antibiotics. -Please follow up with Dr. Snyder (Urology) for further evaluation of your renal cyst. -Please follow up with Dr. Lee (Cardiology) for further pericardial effusion. -Please follow up with Dr. Rosales for follow up of your endoscopy and colonoscopy. -Please follow up with your clubhouse attendant for management of your anemia. We are also referring you to Dr. Estrada if you do not follow with your clubhouse attendant anymore. Return to the Emergency Department if you have continued diarrhea, nausea, vomiting, chest pain, abdominal pain, or worsening of your symptoms. En Espanol: Lo vieron en el hospital por quejas de diarrea persistente. Lo tratamos con antibiticos y lquidos intravenosos. Le hicieron anatoliy endoscopia y anatoliy colonoscopia mientras estuvo aqu. No hubo signos de sangrado, por favor karena un seguimiento con el Dr. Rosales (mdico de gastroenterologa) para obtener los resultados de la patologa. Se descubri que tiene imgenes anormales de arrieta pncreas en la resonancia magntica abdominal. Se shrestha hecho anatoliy freda con el Dr. Gill para kylah seguimiento. Ya hemos enviado por fax niki resultados de imgenes a la oficina. Se descubri que adis quistes renales bilaterales en la tomografa computarizada. Karena un seguimiento con el urlogo para evaluar ms a fondo los quistes. Se descubri que tiene derrame pericrdico en el ecocardiograma. Usted fue evaluado por cardiologa, por favor karena un seguimiento con ellos para continuar monitoreando arrieta corazn. Usted fue encontrado anmico mientras estaba en el hospital. Te dieron IV дмитрий. Considere un tratamiento adicional con дмитрий IV con arrieta hematlogo y mdico de atencin primaria. Dejaste tu terapia con antibiticos para la lcera del pie antes de venir al hospital. Karena un seguimiento inmediato con el Dr. Da Silva para controlar esta infeccin. Para arrieta anemia, tome: Tabletas de дмитрий, 325 mg por va oral, dos veces al da. Colace 100 mg por va oral, dos veces al da. Contine con niki medicamentos segn las indicaciones. Evite los JOSEPHINE carlos Motrin , Advil, Ibuprofen y Aspirin. Repita arrieta colonoscopia en 5 aos. REFERENCIAS -Por favor, karena un seguimiento [facility] el [facility] anatoliy ecografa endoscpica ambulatoria para anatoliy evaluacin ambulatoria el 07/01/19 a las 1:20 PM. Arrieta direccin es [address], [place] [address]. -Siga con el Dr. Da Silva dentro de 1 semana. Se debe repetir el anlisis de caty en eleonora momento (CBC, CMP) y para determinar la necesidad de antibiticos adicionales. -Siga con el Dr. Snyder (Urologa) para anatoliy evaluacin adicional de arrieta quiste renal. -Por favor, karena un seguimiento con el Dr. Lee (Cardiologa) para un mayor derrame pericrdico. -Siga con el Dr. Rosales para el seguimiento de arrieta endoscopia y colonoscopia. -Siga con arrieta hematlogo para controlar arrieta anemia. Tambin lo estamos derivando al Dr. Estrada si ya no sigue con arrieta hematlogo. Regrese al departamento de emergencias si tiene diarrea continua, nuseas, vmitos, dolor en el pecho, dolor abdominal o empeoramiento de niki sntomas. Referrals: Zain Gill MD [Other] - 07/01/19 1:20 pm Ted Rosales DO [Staff Physician] - Lino Lee MD [Staff Physician] - Krishna Da Silva MD [Primary Care Provider] - 1 Week Nino Snyder MD [Staff Physician] - 1 Week Giovanni Estrada MD [Staff Physician] - Disposition: HOME - Home Medications Comprehensive Discharge Medication List: Ambulatory Orders Amlodipine Besylate 10 mg PO DAILY 06/09/19 Atorvastatin Ca [Lipitor] 80 mg DAILY 06/09/19 Furosemide 40 mg DAILY 06/09/19 Glipizide 10 mg BID 06/09/19 Hydrochlorothiazide [Hctz -] 25 mg DAILY 06/09/19 Lisinopril 5 mg PO DAILY 06/09/19 Metformin HCl [Glucophage] 1,000 mg BID 06/09/19 Omeprazole 40 mg DAILY 06/09/19 Pioglitazone HCl [Actos] 30 mg DAILY 06/09/19 Sitagliptin Phosphate [Januvia] 100 mg DAILY 06/09/19 Docusate Sodium [Colace -] 100 mg PO BID #60 capsule 06/11/19 Ferrous Sulfate [Iron] 325 mg PO BID #60 tablet 06/11/19 This patient is new to me today: No Emergency Visit: Yes ED Registration Date: 06/08/19 Care time: The patient presented to the Emergency Department on the above date and was hospitalized for further evaluation of their emergent condition. Critical Care patient: No - Discharge Referral Referred to [facility] No ATTENDING PHYSICIAN STATEMENT I saw and evaluated the patient. I reviewed the resident's note and discussed the case with the resident. I agree with the resident's findings and plan as documented. SUBJECTIVE: OBJECTIVE: ASSESSMENT AND PLAN:
--- NOTE | 2019-06-16 18:26 | PATH ---
Surgical Pathology Report Patient Name: KLEBER DEMPSEY [facility]. Rec. #: [id number] /Age/Gender: 1950 (Age: 68) / M Account: [id number] Location: [address] [place] [address] Taken: 06/09/2019 Received: 06/14/2019 Reported: 06/16/2019 Physicians: Mahesh Rosales D.O. Specimen(s) Received A: SMALL BOWEL B: GASTRIC NODULES, ANASTOMOSIS C: STOMACH D: CARDIA OF STOMACH E: RIGHT COLON F: RIGHT COLON AND CECUM G: TRANSVERSE H: TRANSVERSE COLON I: DESCENDING COLON J: SIGMOID Clinical History Diarrhea, abdominal pain Postoperative diagnosis: Gastritis, gastric polyps, anastomosis, colon polyps, diverticulosis, hemorrhoids Final Diagnosis A. SMALL BOWEL, BIOPSY: SMALL BOWEL MUCOSA WITHOUT SIGNIFICANT PATHOLOGIC FINDINGS. B. GASTRIC NODULES, ANASTOMOSIS, BIOPSY: GASTRIC MUCOSA WITH SEVERE CHRONIC ACTIVE GASTRITIS AND REACTIVE CHANGES. IMMUNOHISTOCHEMICAL STAIN FOR H. PYLORI IS NEGATIVE. C. STOMACH, BIOPSY: GASTRIC MUCOSA WITH MODERATE CHRONIC GASTRITIS. IMMUNOHISTOCHEMICAL STAIN FOR H. PYLORI IS NEGATIVE. D. STOMACH, CARDIA, BIOPSY: GASTRIC CARDIAC TYPE MUCOSA WITH MODERATE CHRONIC GASTRITIS. IMMUNOHISTOCHEMICAL STAIN FOR H. PYLORI IS NEGATIVE. E. COLON, RIGHT, POLYP, BIOPSY: TUBULAR ADENOMA. F. CECUM AND COLON, RIGHT, BIOPSY: POLYPOID COLONIC MUCOSA WITH SMALL LYMPHOID AGGREGATES. G. TRANSVERSE COLON, BIOPSY: COLONIC MUCOSA WITHOUT SIGNIFICANT PATHOLOGIC FINDINGS. H. TRANSVERSE COLON, POLYP, BIOPSY: POLYPOID COLONIC MUCOSA WITH PROMINENT LYMPHOID AGGREGATE AND SUPERFICIAL HYPERPLASTIC FEATURES. I. DESCENDING COLON, BIOPSY: COLONIC MUCOSA WITHOUT SIGNIFICANT PATHOLOGIC FINDINGS. J. SIGMOID COLON, BIOPSY: COLONIC MUCOSA WITHOUT SIGNIFICANT PATHOLOGIC FINDINGS. Electronically Signed Capri Malin M.D. Gross Description A. Received in formalin, labeled "biopsy small bowel" are 3 thakur, irregular portions of soft tissue ranging from 0.2-0.4 cm. in greatest dimension. The specimens are submitted in toto in one cassette. B. Received in formalin, labeled "biopsy gastric nodules at anastomosis" are 6 thakur, irregular portions of soft tissue ranging from 0.2-0.4 cm. in greatest dimension. The specimens are submitted in toto in one cassette. C. Received in formalin, labeled "biopsy stomach" are 2 thakur, irregular portions of soft tissue measuring 0.2 and 0.3 cm. in greatest dimension. The specimens are submitted in toto in one cassette. D. Received in formalin, labeled "biopsy cardia of stomach" are 2 thakur, irregular portions of soft tissue averaging 0.3 cm. in greatest dimension. The specimens are submitted in toto in one cassette. E. Received in formalin, labeled "polyp right colon" is a thakur, irregular portion of soft tissue measuring 0.2 cm. in greatest dimension. The specimen is submitted in toto in one cassette. F. Received in formalin, labeled "right colon and cecum" are 2 thakur, irregular portions of soft tissue measuring 0.2-0.3 cm. in greatest dimension. The specimens are submitted in toto in one cassette. G. Received in formalin, labeled "biopsy transverse" are 2 thakur, irregular portions of soft tissue measuring 0.3 and 0.4 cm. in greatest dimension. The specimens are submitted in toto in one cassette. H. Received in formalin, labeled "polyp transverse colon" is a thakur, irregular portion of soft tissue measuring 0.3 cm. in greatest dimension. The specimen is submitted in toto in one cassette. I. Received in formalin, labeled "biopsy descending colon" are 4 thakur, irregular portions of soft tissue ranging from 0.1-0.3 cm. in greatest dimension. The specimens are submitted in toto in one cassette. J. Received in formalin, labeled "biopsy sigmoid" are 3 thakur, irregular portions of soft tissue ranging from 0.2-0.3 cm. in greatest dimension. The specimens are submitted in toto in one cassette. 06/14/2019 saudi06/14/2019
== END 2019-06-11 18:43 | disposition home or self-care (01) | DRG 392 ==
LOC: JER 12:22 → JERBED 18:04 → J5S 21:20
PROC: 0DBL8ZX Excision of Transverse Colon, Via Natural or Artificial Opening Endoscopic, Diagnostic (ICD-10-PCS; 2019-06-11)
PROC: 0DB68ZX Excision of Stomach, Via Natural or Artificial Opening Endoscopic, Diagnostic (ICD-10-PCS; principal; 2019-06-11 13:30)
DX: R19.7 Diarrhea, unspecified (principal); D61.818 Other pancytopenia; I31.3 Pericardial effusion (noninflammatory); E11.621 Type 2 diabetes mellitus with foot ulcer; E11.69 Type 2 diabetes mellitus with other specified complication; T36.95XA Adverse effect of unspecified systemic antibiotic, initial encounter; N28.1 Cyst of kidney, acquired; E87.5 Hyperkalemia; E83.42 Hypomagnesemia; K86.89 Other specified diseases of pancreas; D50.9 Iron deficiency anemia, unspecified; K64.8 Other hemorrhoids; K63.5 Polyp of colon
CPT/HCPCS: 36415; 71045-TC-FY; 74177-TC; 74181-TC; 80048; 80053; 82272; 82550; 82607; 82728; 82746; 82962; 83540; 83550; 83690; 83735; 84100; 84443; 84484; 85025; 85610; 85730; 86850; 86900; 86901; 87177; 87209; 87389; 88305-TC; 93005; 93010; 93306-TC; 97116-GP; 97161-GP; 99284-25; J0131; J1756; J7030

== ENCOUNTER 2021-09-08 21:07 | Inpatient (IN) | payer OTHER ==
[2021-09-08] MEDS ORDERED: LACTATED RINGERS SOLUTION 1000 ML INFUS.BAG IV ONE (22:11)
[2021-09-08 22:51] LABS: BASO % 0.2 % (0-2.0); LYMPH % 1.2 % (8-40); MCH 26.7 pg (25.7-33.7); MCHC 29.8 g/dl (32.0-35.9); MEAN CELL VOLUME 89.5 fl (80-96); MEAN PLT VOLUME 8.2 fl (7.5-11.1); MONO % 6.7 % (3.8-10.2); NEUT % 91.9 % (42.8-82.8); PLATELET COUNT 293 10^3/uL (134-434); RBC 2.01 M/mm3 (4.00-5.60); RDW 18.5 % (11.9-15.9); WHITE BLOOD COUNT 15.5 K/mm3 (4.0-10.0)
[2021-09-08 22:58] LABS: HEMOGLOBIN 5.4 GM/dL (11.7-16.9); INR 1.24 (0.83-1.09); PROTHROMBIN TIME (PATIENT) 14.3 SEC (9.7-13.0)
[2021-09-08 23:00] LABS: ACTIVATED PTT 32.4 SECONDS (25.2-36.5)
[2021-09-08 23:13] LABS: CALCIUM 8.1 mg/dL (8.5-10.1)
[2021-09-08 23:14] LABS: ALBUMIN 2.6 g/dl (3.4-5.0); BLOOD UREA NITROGEN 30.5 mg/dL (7-18); MAGNESIUM 1.3 mg/dL (1.8-2.4)
[2021-09-08 23:17] LABS: CREATININE 1.1 mg/dL (0.55-1.3)
[2021-09-08 23:18] LABS: BILIRUBIN,TOTAL 0.4 mg/dL (0.2-1)
[2021-09-08 23:19] LABS: TOT PROT 5.2 g/dl (6.4-8.2)
[2021-09-08 23:22] LABS: LACTIC ACID 7.7 mmol/L (0.4-2.0)
[2021-09-08 23:33] LABS: ANISOCYTOSIS 2+
[2021-09-08 23:34] LABS: PLATELET ESTIMATE ADEQUATE; TARGET CELLS 2+
[2021-09-09] MEDS ORDERED: MAGNESIUM 1GM/D5W - 1 GM/100 ML IVPB IVPB ONE
[2021-09-09 00:04] LABS: EPI CELLS 5 /uL (0-25.1); HYALINE CASTS 3 /uL (0-3.1); URINE APPEARANCE CLEAR; URINE BACTERIA 0 /uL (0-1359); URINE BILIRUBIN NEGATIVE (NEGATIVE); URINE COLOR YELLOW; URINE GLUCOSE (UA) NEGATIVE (NEGATIVE); URINE KETONE TRACE (NEGATIVE); URINE LEUK ESTERASE NEGATIVE (NEGATIVE); URINE NITRITE NEGATIVE (NEGATIVE); URINE PROTEIN 2+ (NEGATIVE); URINE RBC 8 /uL (0-23.9); URINE UROBILINOGEN 0.2 mg/dL (0.2-1.0); URINE WBC 4 /uL (0-25.8)
[2021-09-09] MEDS ORDERED: VANCOMYCIN 1 GM in D5W (PRE-DOCKED) 1,000 MG/250 ML IVPB ONE (06:06)
[2021-09-09] MEDS ORDERED: PIPERACILLIN/TAZOB 4.5 GM 4.5 GM in DEXTROSE 5%-WATER 100 ML IVPB ONE (06:06)
[2021-09-09] MEDS ORDERED: PIPERACILLIN/TAZOB 3.375 GM 3.375 GM/50 ML BAG IVPB ONE ×3 (06:27→17:35)
[2021-09-09] MEDS ORDERED: PIPERACILLIN/TAZOB 4.5 GM 4.5 GM/100 ML BAG IVPB ONE ×2 (06:28→10:34)
[2021-09-09] MEDS ORDERED: CEFTRIAXONE 1 GM/50 ML BAG ONE (06:32)
[2021-09-09] MEDS ORDERED: PANTOPRAZOLE 40 MG TABLET ONE ×2 (07:57→22:13)
[2021-09-09] MEDS: INSULIN SLIDING SCALE (NOVOLOG) 1 VIAL SQ SCH ×4 (09:05→22:38)
[2021-09-09 09:11] LABS: BASO % 0.1 % (0-2.0); EOS % 0.1 % (0-4.5); HEMATOCRIT 26.1 % (35.4-49); HEMOGLOBIN 8.4 GM/dL (11.7-16.9); LYMPH % 2.5 % (8-40); MCH 27.7 pg (25.7-33.7); MCHC 32.2 g/dl (32.0-35.9); MEAN CELL VOLUME 85.9 fl (80-96); MEAN PLT VOLUME 7.8 fl (7.5-11.1); MONO % 7.9 % (3.8-10.2); NEUT % 89.4 % (42.8-82.8); PLATELET COUNT 241 10^3/uL (134-434); RBC 3.04 M/mm3 (4.00-5.60); RDW 17.5 % (11.9-15.9); RETICULOCYTES 1.91 % (0.5-1.5); WHITE BLOOD COUNT 14.4 K/mm3 (4.0-10.0)
[2021-09-09] MEDS ORDERED: PIPERACILLIN/TAZOB 3.375 GM 3.375 GM in DEXTROSE 5%-WATER - 50 ML IVPB SCH (10:00)
[2021-09-09 10:15] LABS: BILIRUBIN,DIRECT 0.2 mg/dL (0.0-0.2)
[2021-09-09] MEDS: PANTOPRAZOLE 40 MG TABLET PO SCH ×2 (10:15→22:33)
[2021-09-09 11:20] LABS: LACTIC ACID 2.7 mmol/L (0.4-2.0)
[2021-09-09] MEDS: SODIUM CHLORIDE 1,000 ML IV SCH (14:22)
[2021-09-09] MEDS ORDERED: CEFEPIME 1 GM/100 ML BAG IVPB ONE (17:37)
[2021-09-09] MEDS: PIPERACILLIN/TAZOB 3.375 GM 3.375 GM in DEXTROSE 5%-WATER - 50 ML IVPB SCH (18:49)
[2021-09-10] MEDS ORDERED: PIPERACILLIN/TAZOB 3.375 GM 3.375 GM/50 ML BAG IVPB ONE ×2 (03:42→09:28)
[2021-09-10] MEDS: PIPERACILLIN/TAZOB 3.375 GM 3.375 GM in DEXTROSE 5%-WATER - 50 ML IVPB SCH ×3 (03:55→18:39)
[2021-09-10 06:36] LABS: BASO % 0.1 % (0-2.0); EOS % 0.6 % (0-4.5); HEMATOCRIT 28.6 % (35.4-49); HEMOGLOBIN 9.3 GM/dL (11.7-16.9); LYMPH % 4.9 % (8-40); MCH 27.5 pg (25.7-33.7); MCHC 32.4 g/dl (32.0-35.9); MEAN CELL VOLUME 85.1 fl (80-96); MONO % 10.3 % (3.8-10.2); NEUT % 84.1 % (42.8-82.8); PLATELET COUNT 263 10^3/uL (134-434); RBC 3.36 M/mm3 (4.00-5.60); RDW 17.9 % (11.9-15.9); WHITE BLOOD COUNT 8.7 K/mm3 (4.0-10.0)
[2021-09-10 06:56] LABS: CALCIUM 7.8 mg/dL (8.5-10.1)
[2021-09-10 06:57] LABS: ALBUMIN 2.5 g/dl (3.4-5.0); BLOOD UREA NITROGEN 22.7 mg/dL (7-18); MAGNESIUM 1.7 mg/dL (1.8-2.4)
[2021-09-10 07:00] LABS: CREATININE 0.9 mg/dL (0.55-1.3); PHOSPHOROUS 2.9 mg/dL (2.5-4.9)
[2021-09-10 07:02] LABS: BILIRUBIN,TOTAL 0.4 mg/dL (0.2-1); TOT PROT 5.4 g/dl (6.4-8.2)
[2021-09-10] MEDS ORDERED: MAGNESIUM 1GM/D5W 100ML - 100 ML IVPB IVPB ONE (08:00)
[2021-09-10] MEDS: INSULIN SLIDING SCALE (NOVOLOG) 1 VIAL SQ SCH ×4 (09:20→21:39)
[2021-09-10] MEDS ORDERED: amLODIPine BESYLATE 10 MG TABLET (FP) ONE (09:27)
[2021-09-10] MEDS ORDERED: ASPIRIN 81 MG CHEWABLE TABLETS ONE (09:27)
[2021-09-10] MEDS ORDERED: FERROUS SO4 325 MG TABLET (FP) ONE (09:27)
[2021-09-10] MEDS ORDERED: MAGNESIUM 1GM/D5W - 1 GM/100 ML IVPB IVPB ONE (09:29)
[2021-09-10] MEDS ORDERED: PANTOPRAZOLE 40 MG TABLET ONE (09:29)
[2021-09-10] MEDS: FERROUS SO4 325 MG TABLET (FP) PO SCH ×2 (10:00→18:39)
[2021-09-10] MEDS: PANTOPRAZOLE 40 MG TABLET PO SCH ×2 (10:00→21:39)
[2021-09-10] MEDS: ASPIRIN 81 MG CHEWABLE TABLETS PO SCH (10:00)
[2021-09-10] MEDS: amLODIPine BESYLATE 10 MG TABLET (FP) PO SCH (10:00)
[2021-09-10] MEDS: SODIUM CHLORIDE 1,000 ML IV SCH ×2 (11:09→14:27)
[2021-09-10] MEDS ORDERED: DEXTROSE 5%-WATER - 50 ML IVPB ONE (18:38)
[2021-09-10] MEDS ORDERED: PIPERACILLIN/TAZOBACTAM 3.375 GM VIAL IVPB ONE (18:38)
[2021-09-10] MEDS ORDERED: INSULIN (NOVOLOG) ASPART 100 UNITS/ML 10ML VIAL ONE (21:18)
[2021-09-10] MEDS: ATORVASTATIN CA 80 MG TABLET (FP) PO SCH (21:39)
[2021-09-11] MEDS ORDERED: PIPERACILLIN/TAZOBACTAM 3.375 GM VIAL IVPB ONE ×3 (01:02→17:40)
[2021-09-11] MEDS ORDERED: DEXTROSE 5%-WATER - 50 ML IVPB ONE ×3 (01:03→17:40)
[2021-09-11] MEDS: PIPERACILLIN/TAZOB 3.375 GM 3.375 GM in DEXTROSE 5%-WATER - 50 ML IVPB SCH ×3 (01:21→17:44)
[2021-09-11] MEDS: INSULIN SLIDING SCALE (NOVOLOG) 1 VIAL SQ SCH ×4 (06:02→21:26)
[2021-09-11 07:37] LABS: BASO % 0.2 % (0-2.0); EOS % 0.8 % (0-4.5); HEMATOCRIT 29.6 % (35.4-49); HEMOGLOBIN 9.5 GM/dL (11.7-16.9); LYMPH % 6.8 % (8-40); MCH 27.3 pg (25.7-33.7); MCHC 32.1 g/dl (32.0-35.9); MEAN PLT VOLUME 8.1 fl (7.5-11.1); MONO % 13.7 % (3.8-10.2); NEUT % 78.5 % (42.8-82.8); PLATELET COUNT 304 10^3/uL (134-434); RBC 3.49 M/mm3 (4.00-5.60); RDW 17.4 % (11.9-15.9); WHITE BLOOD COUNT 7.3 K/mm3 (4.0-10.0)
[2021-09-11 08:02] LABS: CALCIUM 8.3 mg/dL (8.5-10.1)
[2021-09-11 08:03] LABS: BLOOD UREA NITROGEN 19.8 mg/dL (7-18)
[2021-09-11 08:06] LABS: CREATININE 0.7 mg/dL (0.55-1.3)
[2021-09-11] MEDS: FERROUS SO4 325 MG TABLET (FP) PO SCH ×2 (08:10→16:59)
[2021-09-11] MEDS ORDERED: MAG HYDROX/AL HYDROX/SIMETH 30 ML UNIT-DOSE CUP PO PRN (10:05)
[2021-09-11] MEDS: amLODIPine BESYLATE 10 MG TABLET (FP) PO SCH (10:09)
[2021-09-11] MEDS: ASPIRIN 81 MG CHEWABLE TABLETS PO SCH (10:09)
[2021-09-11] MEDS: PANTOPRAZOLE 40 MG TABLET PO SCH ×2 (10:09→11:53)
[2021-09-11 20:47] VITALS: BMI 20.4
[2021-09-11] MEDS: ATORVASTATIN CA 80 MG TABLET (FP) PO SCH (21:26)
[2021-09-12] MEDS: INSULIN SLIDING SCALE (NOVOLOG) 1 VIAL SQ SCH ×4 (06:17→21:42)
[2021-09-12 07:14] LABS: BASO % 0.1 % (0-2.0); EOS % 0.9 % (0-4.5); HEMATOCRIT 29.8 % (35.4-49); HEMOGLOBIN 9.5 GM/dL (11.7-16.9); LYMPH % 11.9 % (8-40); MCH 27.2 pg (25.7-33.7); MCHC 31.8 g/dl (32.0-35.9); MEAN CELL VOLUME 85.4 fl (80-96); MEAN PLT VOLUME 8.1 fl (7.5-11.1); MONO % 14.2 % (3.8-10.2); NEUT % 72.9 % (42.8-82.8); PLATELET COUNT 288 10^3/uL (134-434); RBC 3.48 M/mm3 (4.00-5.60); RDW 17.6 % (11.9-15.9); WHITE BLOOD COUNT 5.9 K/mm3 (4.0-10.0)
[2021-09-12 07:35] LABS: BLOOD UREA NITROGEN 15.8 mg/dL (7-18); MAGNESIUM 1.9 mg/dL (1.8-2.4)
[2021-09-12 07:38] LABS: CREATININE 0.6 mg/dL (0.55-1.3); PHOSPHOROUS 3.1 mg/dL (2.5-4.9)
[2021-09-12] MEDS: FERROUS SO4 325 MG TABLET (FP) PO SCH ×2 (08:21→17:25)
[2021-09-12] MEDS ORDERED: cefTRIAXone SODIUM 1 GM VIAL ONE (10:41)
[2021-09-12] MEDS ORDERED: DEXTROSE 5%-WATER - 50 ML IVPB ONE (10:42)
[2021-09-12] MEDS: LISINOPRIL 10 MG TABLET PO SCH (10:56)
[2021-09-12] MEDS: CEFTRIAXONE 1 GM in DEXTROSE 5%-WATER - 50 ML IVPB SCH (10:56)
[2021-09-12] MEDS: ASPIRIN 81 MG CHEWABLE TABLETS PO SCH (10:56)
[2021-09-12] MEDS: amLODIPine BESYLATE 10 MG TABLET (FP) PO SCH (10:56)
[2021-09-12] MEDS: PANTOPRAZOLE 40 MG TABLET PO SCH (10:58)
[2021-09-12] MEDS: ATORVASTATIN CA 80 MG TABLET (FP) PO SCH (21:40)
[2021-09-13] MEDS: INSULIN SLIDING SCALE (NOVOLOG) 1 VIAL SQ SCH ×4 (06:49→22:57)
[2021-09-13 07:34] LABS: INR 0.97 (0.83-1.09); PROTHROMBIN TIME (PATIENT) 11.2 SEC (9.7-13.0)
[2021-09-13 07:35] LABS: MAGNESIUM 1.9 mg/dL (1.8-2.4)
[2021-09-13 07:36] LABS: BLOOD UREA NITROGEN 23.5 mg/dL (7-18)
[2021-09-13 07:38] LABS: CREATININE 0.7 mg/dL (0.55-1.3); PHOSPHOROUS 3.8 mg/dL (2.5-4.9)
[2021-09-13 07:44] LABS: BASO % 0.2 % (0-2.0); EOS % 1.1 % (0-4.5); HEMOGLOBIN 8.6 GM/dL (11.7-16.9); LYMPH % 14.5 % (8-40); MCH 27.2 pg (25.7-33.7); MCHC 31.7 g/dl (32.0-35.9); MEAN CELL VOLUME 85.7 fl (80-96); MONO % 12.9 % (3.8-10.2); NEUT % 71.3 % (42.8-82.8); PLATELET COUNT 258 10^3/uL (134-434); RBC 3.15 M/mm3 (4.00-5.60); RDW 17.4 % (11.9-15.9); WHITE BLOOD COUNT 5.2 K/mm3 (4.0-10.0)
[2021-09-13] MEDS: amLODIPine BESYLATE 10 MG TABLET (FP) PO SCH (13:03)
[2021-09-13] MEDS: ASPIRIN 81 MG CHEWABLE TABLETS PO SCH (13:03)
[2021-09-13] MEDS: FERROUS SO4 325 MG TABLET (FP) PO SCH ×2 (13:03→17:02)
[2021-09-13] MEDS: LISINOPRIL 10 MG TABLET PO SCH (13:03)
[2021-09-13] MEDS: PANTOPRAZOLE 40 MG TABLET PO SCH (13:06)
[2021-09-13] MEDS ORDERED: cefTRIAXone SODIUM 1 GM VIAL ONE (13:09)
[2021-09-13] MEDS ORDERED: DEXTROSE 5%-WATER - 50 ML IVPB ONE (13:10)
[2021-09-13] MEDS: CEFTRIAXONE 1 GM in DEXTROSE 5%-WATER - 50 ML IVPB SCH (13:11)
[2021-09-13] MEDS: ATORVASTATIN CA 80 MG TABLET (FP) PO SCH (22:56)
[2021-09-13] MEDS: SUCRALFATE 1 GM/10 ML UNIT DOSE CUPS PO SCH (22:56)
[2021-09-14] MEDS: INSULIN SLIDING SCALE (NOVOLOG) 1 VIAL SQ SCH ×4 (06:15→21:01)
[2021-09-14 07:41] LABS: BASO % 0.1 % (0-2.0); EOS % 0.3 % (0-4.5); HEMATOCRIT 28.5 % (35.4-49); HEMOGLOBIN 9.4 GM/dL (11.7-16.9); LYMPH % 4.4 % (8-40); MCH 27.7 pg (25.7-33.7); MCHC 32.8 g/dl (32.0-35.9); MEAN CELL VOLUME 84.6 fl (80-96); MEAN PLT VOLUME 7.7 fl (7.5-11.1); MONO % 6.5 % (3.8-10.2); NEUT % 88.7 % (42.8-82.8); PLATELET COUNT 252 10^3/uL (134-434); RBC 3.38 M/mm3 (4.00-5.60); RDW 17.4 % (11.9-15.9); WHITE BLOOD COUNT 16.9 K/mm3 (4.0-10.0)
[2021-09-14] MEDS ORDERED: cefTRIAXone SODIUM 1 GM VIAL ONE (08:40)
[2021-09-14] MEDS ORDERED: DEXTROSE 5%-WATER - 50 ML IVPB ONE ×2 (08:40→17:24)
[2021-09-14] MEDS: FERROUS SO4 325 MG TABLET (FP) PO SCH ×2 (08:45→17:45)
[2021-09-14] MEDS: SUCRALFATE 1 GM/10 ML UNIT DOSE CUPS PO SCH ×2 (09:15→21:01)
[2021-09-14] MEDS: PANTOPRAZOLE 20 MG TABLET PO SCH (09:15)
[2021-09-14] MEDS: ASPIRIN 81 MG CHEWABLE TABLETS PO SCH (09:15)
[2021-09-14] MEDS: amLODIPine BESYLATE 10 MG TABLET (FP) PO SCH (09:15)
[2021-09-14] MEDS: LISINOPRIL 10 MG TABLET PO SCH (09:15)
[2021-09-14] MEDS: CEFTRIAXONE 1 GM in DEXTROSE 5%-WATER - 50 ML IVPB SCH (10:56)
[2021-09-14] MEDS ORDERED: PIPERACILLIN/TAZOBACTAM 3.375 GM VIAL IVPB ONE (17:23)
[2021-09-14] MEDS: Insulin (LOG) Aspart 100 UNITS/ML VIAL SQ SCH (17:46)
[2021-09-14] MEDS: PIPERACILLIN/TAZOB 3.375 GM 3.375 GM in DEXTROSE 5%-WATER - 50 ML IVPB SCH (17:51)
[2021-09-14] MEDS: ATORVASTATIN CA 80 MG TABLET (FP) PO SCH (21:01)
[2021-09-15] MEDS ORDERED: DEXTROSE 5%-WATER - 50 ML IVPB ONE ×3 (01:16→18:27)
[2021-09-15] MEDS ORDERED: PIPERACILLIN/TAZOBACTAM 3.375 GM VIAL IVPB ONE ×3 (01:16→18:27)
[2021-09-15] MEDS: PIPERACILLIN/TAZOB 3.375 GM 3.375 GM in DEXTROSE 5%-WATER - 50 ML IVPB SCH ×3 (01:45→20:06)
[2021-09-15] MEDS: INSULIN SLIDING SCALE (NOVOLOG) 1 VIAL SQ SCH ×4 (06:13→21:43)
[2021-09-15] MEDS: Insulin (LOG) Aspart 100 UNITS/ML VIAL SQ SCH ×3 (06:53→17:05)
[2021-09-15 07:42] LABS: BLOOD UREA NITROGEN 28.7 mg/dL (7-18); CALCIUM 7.8 mg/dL (8.5-10.1)
[2021-09-15 07:45] LABS: BASO % 0.6 % (0-2.0); EOS % 0.5 % (0-4.5); HEMOGLOBIN 9.5 GM/dL (11.7-16.9); LYMPH % 5.6 % (8-40); MCH 26.9 pg (25.7-33.7); MCHC 31.7 g/dl (32.0-35.9); MEAN CELL VOLUME 84.9 fl (80-96); MEAN PLT VOLUME 8.6 fl (7.5-11.1); MONO % 5.2 % (3.8-10.2); NEUT % 88.1 % (42.8-82.8); PLATELET COUNT 260 10^3/uL (134-434); RBC 3.53 M/mm3 (4.00-5.60); RDW 17.7 % (11.9-15.9); WHITE BLOOD COUNT 12.9 K/mm3 (4.0-10.0)
[2021-09-15 07:46] LABS: CREATININE 0.8 mg/dL (0.55-1.3)
[2021-09-15] MEDS: amLODIPine BESYLATE 10 MG TABLET (FP) PO SCH (10:14)
[2021-09-15] MEDS: PANTOPRAZOLE 20 MG TABLET PO SCH (10:14)
[2021-09-15] MEDS: ASPIRIN 81 MG CHEWABLE TABLETS PO SCH (10:14)
[2021-09-15] MEDS: FERROUS SO4 325 MG TABLET (FP) PO SCH ×2 (10:14→17:09)
[2021-09-15] MEDS: LISINOPRIL 10 MG TABLET PO SCH (10:14)
[2021-09-15] MEDS: SUCRALFATE 1 GM/10 ML UNIT DOSE CUPS PO SCH ×2 (10:15→21:44)
[2021-09-15] MEDS: metoPROLOL SUCCINATE 25 MG TAB.SR.24H (FP) PO SCH (12:49)
[2021-09-15] MEDS: ATORVASTATIN CA 80 MG TABLET (FP) PO SCH (21:43)
[2021-09-16] MEDS ORDERED: DEXTROSE 5%-WATER - 50 ML IVPB ONE ×3 (01:59→17:05)
[2021-09-16] MEDS ORDERED: PIPERACILLIN/TAZOBACTAM 3.375 GM VIAL IVPB ONE ×3 (01:59→17:05)
[2021-09-16] MEDS: PIPERACILLIN/TAZOB 3.375 GM 3.375 GM in DEXTROSE 5%-WATER - 50 ML IVPB SCH ×3 (02:27→18:40)
[2021-09-16] MEDS: INSULIN SLIDING SCALE (NOVOLOG) 1 VIAL SQ SCH ×4 (06:07→21:17)
[2021-09-16] MEDS: Insulin (LOG) Aspart 100 UNITS/ML VIAL SQ SCH ×3 (06:09→16:50)
[2021-09-16 07:21] LABS: BASO % 0.4 % (0-2.0); EOS % 1.2 % (0-4.5); HEMATOCRIT 28.2 % (35.4-49); LYMPH % 9.5 % (8-40); MCH 27.2 pg (25.7-33.7); MCHC 31.8 g/dl (32.0-35.9); MEAN CELL VOLUME 85.3 fl (80-96); MEAN PLT VOLUME 8.2 fl (7.5-11.1); NEUT % 81.9 % (42.8-82.8); PLATELET COUNT 274 10^3/uL (134-434); RBC 3.31 M/mm3 (4.00-5.60); RDW 17.9 % (11.9-15.9); WHITE BLOOD COUNT 9.6 K/mm3 (4.0-10.0)
[2021-09-16] MEDS: SUCRALFATE 1 GM/10 ML UNIT DOSE CUPS PO SCH ×2 (09:48→21:19)
[2021-09-16] MEDS: ASPIRIN 81 MG CHEWABLE TABLETS PO SCH (09:48)
[2021-09-16] MEDS: FERROUS SO4 325 MG TABLET (FP) PO SCH ×2 (09:49→16:48)
[2021-09-16] MEDS: metoPROLOL SUCCINATE 25 MG TAB.SR.24H (FP) PO SCH (09:49)
[2021-09-16] MEDS: LISINOPRIL 10 MG TABLET PO SCH (09:49)
[2021-09-16] MEDS: PANTOPRAZOLE 20 MG TABLET PO SCH (09:49)
[2021-09-16] MEDS: DEXTROSE 5%-LACTATED RINGERS 1,000 ML IV SCH (14:54)
[2021-09-16] MEDS ORDERED: BISACODYL 5 MG TABLET.DR (FP) PO ONE (16:00)
[2021-09-16] MEDS ORDERED: PEG 3350/NA SULF BICARB CL/KCL 4000 ML SOLN.RECON PO ONE (17:00)
[2021-09-16] MEDS: ATORVASTATIN CA 80 MG TABLET (FP) PO SCH (21:19)
[2021-09-17] MEDS ORDERED: PIPERACILLIN/TAZOBACTAM 3.375 GM VIAL IVPB ONE ×3 (01:54→17:13)
[2021-09-17] MEDS ORDERED: DEXTROSE 5%-WATER - 50 ML IVPB ONE ×3 (01:54→17:13)
[2021-09-17] MEDS: PIPERACILLIN/TAZOB 3.375 GM 3.375 GM in DEXTROSE 5%-WATER - 50 ML IVPB SCH ×3 (02:19→18:34)
[2021-09-17] MEDS: INSULIN SLIDING SCALE (NOVOLOG) 1 VIAL SQ SCH ×4 (06:04→22:13)
[2021-09-17] MEDS: Insulin (LOG) Aspart 100 UNITS/ML VIAL SQ SCH ×3 (06:04→17:19)
[2021-09-17] MEDS: FERROUS SO4 325 MG TABLET (FP) PO SCH ×2 (08:34→17:20)
[2021-09-17] MEDS: LISINOPRIL 10 MG TABLET PO SCH ×2 (10:00→12:51)
[2021-09-17] MEDS: PANTOPRAZOLE 20 MG TABLET PO SCH ×2 (10:00→12:51)
[2021-09-17] MEDS: SUCRALFATE 1 GM/10 ML UNIT DOSE CUPS PO SCH ×2 (10:00→22:11)
[2021-09-17] MEDS: metoPROLOL SUCCINATE 25 MG TAB.SR.24H (FP) PO SCH ×2 (10:00→12:51)
[2021-09-17] MEDS: ASPIRIN 81 MG CHEWABLE TABLETS PO SCH (10:00)
[2021-09-17] MEDS: DEXTROSE 5%-LACTATED RINGERS 1,000 ML IV SCH (18:35)
[2021-09-17] MEDS: ATORVASTATIN CA 80 MG TABLET (FP) PO SCH (22:11)
[2021-09-18] MEDS: PIPERACILLIN/TAZOB 3.375 GM 3.375 GM in DEXTROSE 5%-WATER - 50 ML IVPB SCH ×3 (03:15→17:55)
[2021-09-18] MEDS ORDERED: PIPERACILLIN/TAZOBACTAM 3.375 GM VIAL IVPB ONE ×3 (03:19→17:51)
[2021-09-18] MEDS ORDERED: DEXTROSE 5%-WATER - 50 ML IVPB ONE ×3 (03:19→17:51)
[2021-09-18] MEDS: DEXTROSE 5%-LACTATED RINGERS 1,000 ML IV SCH (06:08)
[2021-09-18] MEDS: Insulin (LOG) Aspart 100 UNITS/ML VIAL SQ SCH ×3 (06:09→17:57)
[2021-09-18] MEDS: INSULIN SLIDING SCALE (NOVOLOG) 1 VIAL SQ SCH ×4 (06:09→22:59)
[2021-09-18] MEDS: FERROUS SO4 325 MG TABLET (FP) PO SCH ×2 (08:10→17:56)
[2021-09-18 08:23] LABS: BASO % 0.1 % (0-2.0); HEMATOCRIT 25.3 % (35.4-49); HEMOGLOBIN 7.6 GM/dL (11.7-16.9); LYMPH % 11.5 % (8-40); MCH 27.1 pg (25.7-33.7); MCHC 30.1 g/dl (32.0-35.9); MEAN CELL VOLUME 89.9 fl (80-96); MEAN PLT VOLUME 8.3 fl (7.5-11.1); MONO % 5.9 % (3.8-10.2); NEUT % 81.5 % (42.8-82.8); PLATELET COUNT 254 10^3/uL (134-434); RBC 2.82 M/mm3 (4.00-5.60); RDW 18.4 % (11.9-15.9); RETICULOCYTES 2.14 % (0.5-1.5); WHITE BLOOD COUNT 6.1 K/mm3 (4.0-10.0)
[2021-09-18] MEDS: ASPIRIN 81 MG CHEWABLE TABLETS PO SCH (09:56)
[2021-09-18] MEDS: LISINOPRIL 10 MG TABLET PO SCH (09:56)
[2021-09-18] MEDS: PANTOPRAZOLE 20 MG TABLET PO SCH (09:57)
[2021-09-18] MEDS: metoPROLOL SUCCINATE 25 MG TAB.SR.24H (FP) PO SCH (09:57)
[2021-09-18] MEDS: SUCRALFATE 1 GM/10 ML UNIT DOSE CUPS PO SCH ×2 (09:57→22:51)
[2021-09-18 11:43] LABS: BASO % 0.1 % (0-2.0); EOS % 0.7 % (0-4.5); HEMATOCRIT 30.5 % (35.4-49); HEMOGLOBIN 9.8 GM/dL (11.7-16.9); LYMPH % 11.7 % (8-40); MCH 27.3 pg (25.7-33.7); MEAN CELL VOLUME 85.3 fl (80-96); MEAN PLT VOLUME 7.7 fl (7.5-11.1); MONO % 6.4 % (3.8-10.2); NEUT % 81.1 % (42.8-82.8); PLATELET COUNT 291 10^3/uL (134-434); RBC 3.58 M/mm3 (4.00-5.60); RDW 18.3 % (11.9-15.9); WHITE BLOOD COUNT 8.4 K/mm3 (4.0-10.0)
[2021-09-18] MEDS: RIVAROXABAN 2.5 MG TABLET PO SCH ×4 (12:00→22:59)
[2021-09-18 12:02] LABS: CALCIUM 7.9 mg/dL (8.5-10.1)
[2021-09-18 12:06] LABS: CREATININE 0.8 mg/dL (0.55-1.3)
[2021-09-18] MEDS: ATORVASTATIN CA 80 MG TABLET (FP) PO SCH (22:51)
[2021-09-19] MEDS: PIPERACILLIN/TAZOB 3.375 GM 3.375 GM in DEXTROSE 5%-WATER - 50 ML IVPB SCH ×2 (03:00→09:01)
[2021-09-19] MEDS ORDERED: PIPERACILLIN/TAZOBACTAM 3.375 GM VIAL IVPB ONE ×2 (03:06→08:33)
[2021-09-19] MEDS: Insulin (LOG) Aspart 100 UNITS/ML VIAL SQ SCH ×2 (06:09→12:19)
[2021-09-19] MEDS: INSULIN SLIDING SCALE (NOVOLOG) 1 VIAL SQ SCH ×2 (06:09→12:20)
[2021-09-19 07:36] LABS: BASO % 0.2 % (0-2.0); EOS % 1.3 % (0-4.5); HEMATOCRIT 29.7 % (35.4-49); HEMOGLOBIN 9.6 GM/dL (11.7-16.9); LYMPH % 15.6 % (8-40); MCH 27.4 pg (25.7-33.7); MCHC 32.4 g/dl (32.0-35.9); MEAN CELL VOLUME 84.6 fl (80-96); MEAN PLT VOLUME 7.9 fl (7.5-11.1); MONO % 6.5 % (3.8-10.2); NEUT % 76.4 % (42.8-82.8); PLATELET COUNT 278 10^3/uL (134-434); RBC 3.51 M/mm3 (4.00-5.60); RDW 18.1 % (11.9-15.9); WHITE BLOOD COUNT 6.1 K/mm3 (4.0-10.0)
[2021-09-19] MEDS: FERROUS SO4 325 MG TABLET (FP) PO SCH ×2 (08:16→16:31)
[2021-09-19 08:20] LABS: BLOOD UREA NITROGEN 12.8 mg/dL (7-18); CALCIUM 7.9 mg/dL (8.5-10.1)
[2021-09-19 08:24] LABS: CREATININE 0.7 mg/dL (0.55-1.3)
[2021-09-19] MEDS ORDERED: DEXTROSE 5%-WATER - 50 ML IVPB ONE (08:34)
[2021-09-19] MEDS: SUCRALFATE 1 GM/10 ML UNIT DOSE CUPS PO SCH (09:02)
[2021-09-19] MEDS: RIVAROXABAN 2.5 MG TABLET PO SCH (09:02)
[2021-09-19] MEDS: PANTOPRAZOLE 20 MG TABLET PO SCH (09:02)
[2021-09-19] MEDS: metoPROLOL SUCCINATE 25 MG TAB.SR.24H (FP) PO SCH (09:03)
[2021-09-19] MEDS ORDERED: LISINOPRIL 20 MG TABLET PO SCH (10:00)
[2021-09-19 14:51] VITALS: BP 141/74; PULSE 62; TEMP 98.2
== END 2021-09-19 18:00 | disposition home or self-care (01) | DRG 872 ==
LOC: JER 21:07 → JERBED 23:43 → J8W 09-09 05:43 → JERBED 09-09 05:43 → J4W 09-10 17:09
PROVIDERS: ADMIT Hospitalist; ATTEND Internal Medicine
PROC: 30233N1 Transfusion of Nonautologous Red Blood Cells into Peripheral Vein, Percutaneous Approach (ICD-10-PCS; principal; 2021-09-09)
PROC: 0DB68ZX Excision of Stomach, Via Natural or Artificial Opening Endoscopic, Diagnostic (ICD-10-PCS; 2021-09-13)
PROC: 0DB98ZX Excision of Duodenum, Via Natural or Artificial Opening Endoscopic, Diagnostic (ICD-10-PCS; 2021-09-17)
PROC: 0DB68ZX Excision of Stomach, Via Natural or Artificial Opening Endoscopic, Diagnostic (ICD-10-PCS; 2021-09-17)
PROC: 0DBH8ZX Excision of Cecum, Via Natural or Artificial Opening Endoscopic, Diagnostic (ICD-10-PCS; 2021-09-17)
PROC: 0DBP8ZX Excision of Rectum, Via Natural or Artificial Opening Endoscopic, Diagnostic (ICD-10-PCS; 2021-09-17)
PROC: 0DB38ZX Excision of Lower Esophagus, Via Natural or Artificial Opening Endoscopic, Diagnostic (ICD-10-PCS; 2021-09-17)
PROC: 0DBA8ZX Excision of Jejunum, Via Natural or Artificial Opening Endoscopic, Diagnostic (ICD-10-PCS; 2021-09-17)
PROC: 0DBK8ZX Excision of Ascending Colon, Via Natural or Artificial Opening Endoscopic, Diagnostic (ICD-10-PCS; 2021-09-17)
DX: A41.50 Gram-negative sepsis, unspecified (principal); I31.3 Pericardial effusion (noninflammatory); E87.2 Acidosis; R17 Unspecified jaundice; D62 Acute posthemorrhagic anemia; R42 Dizziness and giddiness; E11.9 Type 2 diabetes mellitus without complications; I10 Essential (primary) hypertension; D50.9 Iron deficiency anemia, unspecified; E78.5 Hyperlipidemia, unspecified; I51.7 Cardiomegaly; D72.829 Elevated white blood cell count, unspecified; R31.0 Gross hematuria; N40.1 Benign prostatic hyperplasia with lower urinary tract symptoms; I48.0 Paroxysmal atrial fibrillation; K44.9 Diaphragmatic hernia without obstruction or gangrene; K29.50 Unspecified chronic gastritis without bleeding
CPT/HCPCS: 36415; 36430; 71045-TC-FY; 73706-TC-RT; 74183-TC; 76700-TC; 76882-TC-RT-FY; 80048; 80053; 81003; 82248; 82272; 82525; 82607; 82728; 82746; 82962; 83540; 83550; 83605; 83615; 83690; 83735; 84100; 84484; 85025; 85045; 85610; 85730; 86850; 86900; 86901; 86922; 87040; 87086; 87186; 88305-TC; 93005; 93010; 93306-TC; 93970-TC; 97116-GP; 97161-GP; 99285-25; A9579; C9803; P9058; U0003; U0005

== ENCOUNTER 2021-10-11 09:02 | Emergency (ER) | payer OTHER ==
[2021-10-11 09:12] VITALS: BMI 18.3
[2021-10-11 10:27] LABS: VENOUS BASE EXCESS 0.3 mmol/L (-2-2); VENOUS O2 SATURATION 15.1 % (70-80); VENOUS PCO2 53.8 mmHg (38-52); VENOUS PH 7.319 (7.310-7.410)
[2021-10-11 10:32] LABS: BASO % 0.2 % (0-2.0); EOS % 0.9 % (0-4.5); HEMATOCRIT 34.4 % (35.4-49); HEMOGLOBIN 11.2 GM/dL (11.7-16.9); LYMPH % 13.7 % (8-40); MCH 29.1 pg (25.7-33.7); MCHC 32.5 g/dl (32.0-35.9); MEAN CELL VOLUME 89.5 fl (80-96); MEAN PLT VOLUME 9.2 fl (7.5-11.1); MONO % 8.1 % (3.8-10.2); NEUT % 77.1 % (42.8-82.8); PLATELET COUNT 236 10^3/uL (134-434); RBC 3.84 M/mm3 (4.00-5.60); RDW 22.6 % (11.9-15.9); WHITE BLOOD COUNT 5.5 K/mm3 (4.0-10.0)
[2021-10-11 11:03] LABS: ACTIVATED PTT 31.5 SECONDS (25.2-36.5); INR 0.92 (0.83-1.09); PROTHROMBIN TIME (PATIENT) 10.6 SEC (9.7-13.0)
[2021-10-11 11:23] LABS: URINE APPEARANCE CLEAR; URINE BILIRUBIN NEGATIVE (NEGATIVE); URINE COLOR YELLOW; URINE GLUCOSE (UA) 3+ (NEGATIVE); URINE KETONE TRACE (NEGATIVE); URINE NITRITE NEGATIVE (NEGATIVE); URINE PROTEIN TRACE (NEGATIVE); URINE UROBILINOGEN 0.2 mg/dL (0.2-1.0)
[2021-10-11 11:24] LABS: URINE LEUK ESTERASE NEGATIVE (NEGATIVE)
[2021-10-11 11:47] LABS: ANISOCYTOSIS 2+; MACROCYTOSIS 2+; OVALOCYTE 2+
[2021-10-11 11:57] LABS: CHLORIDE 106 mmol/L (98-107); SODIUM 140 mmol/L (136-145)
[2021-10-11 12:03] LABS: EPI CELLS 34 /uL (0-25.1); HYALINE CASTS 6.5 /uL (0-3.1); URINE BACTERIA 1 /uL (0-1359); URINE RBC 7.1 /uL (0-23.9); URINE WBC 15 /uL (0-25.8)
[2021-10-11] MEDS ORDERED: SODIUM CHLORIDE 0.9% 500 ML INFUS.BAG IV ONE (12:56)
[2021-10-11 12:58] LABS: ALK PHOS 127 U/L (45-117); BILIRUBIN,TOTAL 0.4 mg/dL (0.2-1); CALCIUM 9.3 mg/dL (8.5-10.1); CO2 25 mmol/L (21-32); GLUCOSE,RANDOM 343 mg/dL (74-106); MAGNESIUM 2.2 mg/dL (1.8-2.4); SGOT/AST 27 U/L (15-37); SGPT/ALT 27 U/L (13-61); TOT PROT 6.3 g/dl (6.4-8.2)
[2021-10-11 13:39] LABS: ALBUMIN 2.3 g/dl (3.4-5.0); BLOOD UREA NITROGEN 30.6 mg/dL (7-18); CALCIUM 8.3 mg/dL (8.5-10.1)
[2021-10-11 13:42] LABS: CREATININE 0.9 mg/dL (0.55-1.3)
[2021-10-11 13:44] LABS: BILIRUBIN,TOTAL 0.3 mg/dL (0.2-1); TOT PROT 5.1 g/dl (6.4-8.2)
[2021-10-11 15:37] VITALS: PULSE 70; TEMP 96.8
[2021-10-11 15:43] VITALS: BP 138/64
== END 2021-10-11 15:42 | disposition home or self-care (01) ==
LOC: JER 09:02
DX: R53.1 Weakness (principal); R73.9 Hyperglycemia, unspecified
CPT/HCPCS: 36415; 71045-TC-FY; 80053; 81003; 82010; 82272; 82803; 82962; 83735; 85025; 85610; 85730; 86850; 86900; 86901; 87086; 93005; 93010; 99285-25